=== PATIENT | female | born 1945 | race Caucasian/White ===

== ENCOUNTER 2016-05-22 14:44 | Inpatient (IN) | payer OTHER, MEDICARE ==
[~2016-05-22] VITALS: Ht 162.6 cm; Wt 77.1 kg
[~2016-05-22 14:44] MED LIST: ACETAMINOPHEN/H1 TAB PO; ADVAIR 500-501 EACH INH; ADVAIR DISKU 11 UNIT INH; ALBUTEROL0.09 MG/A1 INH; ALPRAZOLAM0.25 MG PO; DOCUSATE SODIU100 MG PO; LEVOXYL100 MCG PO; LIDODERM 5% PAT1 PAT TOP; LOVENOX 4040 MG/0.4 SC; NORVASC5 M1 PO; PLAQUENIL200 M1 PO; TYLENOL #31 TAB PO; ULTRACET 325 MG1 TAB PO; ULTRAM(MONOGRAP50 MG PO; VALTREX1 GM PO; XANAX0.5 MG
--- NOTE | 2016-05-22 14:52 | NUR ---
SLID ON THE ICE MONDAY INJURING LEFT LEG FROM HIP TO ANKLE. 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 STATES TODAY THE LEG STIFFENED UP AND SHE IS UNABLE TO BEAR WEIGHT ON IT
--- NOTE | 2016-05-22 15:12 | ED MVC/FALL/TRAUMA COMPLAINT ---
History of Present Illness General Chief Complaint: Lower Extremity Problems Stated Complaint: "I FELL MONDAY IN THE ICE" Source: patient, old records Exam Limitations: no limitations Vital Signs & Intake/Output Vital Signs & Intake/Output Vital Signs Date Time Temp Pulse Resp B/P Pulse O2 O2 Flow FiO2 Ox Delivery Rate 05/22 1848 97.1 64 18 148/72 98 Room Air 05/22 1642 97.8 66 20 158/74 98 Room Air 05/22 1452 97.9 61 20 155/79 96 Room Air Allergies Coded Allergies: diazepam (Mild, ITCHING 05/22/16) Sulfa (Sulfonamide Antibiotics) (ITCHING 05/22/16) oxycodone (GI SXS 05/22/16) Uncoded Allergies: DAIRY FOODS (GI DISTRESS 05/22/16) Reconcile Medications Amlodipine Besylate (Norvasc) 5 MG TABLET 1 TAB PO DAILY HEART (Reported) Fluticasone/Salmeterol (Advair 500-50 Diskus) 500 MCG-50 MCG/DOSE BLST.W.DEV 1 PUF INH BID COPD (Reported) Hydroxychlorquine (Plaquenil) 200 MG TABLET 1 TAB PO DAILY ARTHRITIS ( Reported) Levothyroxine Sodium (Levoxyl) 100 MCG TABLET 1 TAB PO DAILY AC THYROID ( Reported) Tramadol HCl 50 MG TABLET 1-2 TAB PO Q4-6 PRN PRN PAIN (Reported) Triage Note: SLID ON THE ICE MONDAY INJURING LEFT LEG FROM HIP TO ANKLE. 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 STATES TODAY THE LEG STIFFENED UP AND SHE IS UNABLE TO BEAR WEIGHT ON IT Triage Nurses Notes Reviewed? yes Onset: Abrupt Duration: day(s): (3), constant Timing: recent history Severity: moderate Severity Numbers: 7 Injuries/Fall Location: upper extremity, pelvis, lower extremity Method of Injury: fall Loss of Consciousness: no loss of consciousness Modifying Factors: Improves With: rest. Worsens With: movement, palpation. Associated Symptoms: denies HPI: 70-year-old female presents emergency room with her for evaluation. Patient states that 3 days ago she slipped and fell on the ice sustaining injury to her left hip left wrist and ankle. She states that she was taking ibuprofen and Soma for pain which was helping however today while she was out walking in the store she developed severe pain to her left hip and has been unable to ambulate or bear weight on the left leg secondary to pain. There is no new injury or trauma. She hit her head when she initially felt there was no loss of consciousness there is no neck or upper back pain. She just took a dose of ibuprofen and Soma prior to arrival. There is no abdominal pain leg swelling numbness tingling. She describes the pain as aching and sharp mild to moderate worse with ambulation better at rest. She is also complaining of left wrist and left ankle pain from the fall. She denies any left knee pain and right leg or upper arm pain otherwise. she is not on any anticoagulants (BJORN JACKSON) Past History Travel History Traveled to [place] past 21 day No Medical History Any Pertinent Medical History? see below for history Neurological: vertigo EENT: CATARACT SX BILAT Cardiovascular: htn Respiratory: obstructive sleep apnea, copd Musculoskeletal: ra Psychiatric: anxiety Endocrine: HYPOTHYROID Surgical History Surgical History: knee replacement Psychosocial History Who do you live with Significant Other What is your primary language Norwegian Tobacco Use: Never used ETOH Use: denies use Illicit Drug Use: denies illicit drug use Family History Hx Contributory? No (BJORN JACKSON) Review of Systems Review of Systems Constitutional: Reports: see HPI. All Other Systems: Reviewed and Negative Comments Review of systems: See HPI, All other systems negative. Constitutional, no chills no fever, no malaise HEENT: No visual changes no sore throat no congestion Cardiovascular: No chest pain , no palpitation Skin, no rashes, no change in skin Respiratory: No dyspnea no cough no sputum s GI: No nausea no vomiting, no diarrhea, no bloating/constipation : No dysuria No hematuria, no frequency, no discharge Muscle skeletal: joint pain, no joint swelling, no back pain, no neck pain, Neurologic: No numbness, no headache Psych: No stress ,. Heme/endocrine: No bruising no bleeding Immunology: No lymphadenopathy (BJORN JACKSON) Physical Exam Physical Exam General Appearance: well developed/nourished, no apparent distress, alert, awake Comments: Well-developed well-nourished person in no acute distress HEENT: Normal EENT exam; PERRL, EOMI, HEAD is atraumatic. moist mucous membranes. Neck: Supple, no midline or paracervical tenderness, normal range of motion Back: Nontender, no CVA tenderness. Full range of motion no midline or paracervical tenderness no ecchymosis or signs of trauma Cardiovascular: Regular rate and rhythms no murmurs rubs Respiratory: Chest nontender.There were no bony deformities, no asymmetry. No respiratory distress. Patient speaking in full complete sentences. Breath sounds clear to auscultation bilaterally: NO W/R/R Abdomen: Soft, nontender nondistended, no appreciable organomegaly. Normal bowel sounds. No rebound/guarding, Shoulder: Atraumatic/Stable. FROM . Elbow: Atraumatic/stable. FROM. No laxity Upper arm/Forearm: Atraumatic. Nontender. 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 Skin intact. The ecchymosis over the dorsal left wrist nontender no swelling no obvious deformity FROM Pulses: Normal/equal radial pulses bilaterally. Brisk cap refill Hip/Pelvis: Mild tenderness to palpation over the left lateral hip, there is no ecchymosis or signs of trauma, Stable. FROM. No pain with pelvic compression Knee: Atraumatic/stable. FROM. No joint swelling, no effusion. No laxity. Negative bianca/anterior drawer test. No pain with ROM Leg: Atraumatic. Nontender. No edema, 5 out of 5 strength in the lower extremity, normal dorsiflexion of great toe bilaterally, gross sensation is intact Ankle/Foot: Atraumatic/stable. Skin intact. FROM. No swelling, no effusion. No laxity on exam Pulses: Normal/equal DP/PT pulses bilaterally. Brisk cap refill Neuro: Alert oriented x3, motor sensory normal There were no obvious focal neurologic abnormalities. Skin: No appreciable rash on exposed skin, skin is warm and dry. Psych: Mood and affect is normal, memory and judgment is normal. Core Measures ACS in differential dx? No Severe Sepsis Present: No Septic Shock Present: No (KALIN GOEL,BJORN) Progress Differential Diagnosis: abd injury, C/T/L spine injury, ext injury, pelvis injury, pnemothorax, spinal cord injury Plan of Care: Orders Procedure Date/time Status Regular Diet 05/23 B Active PT Evaluate & Treat 05/23 0700 Active Saline Lock 05/22 1819 Active CBC WITHOUT DIFFERENTIAL 05/22 1819 Complete BASIC METABOLIC PANEL 05/22 1819 Complete Laboratory Tests 05/22/16 182: Anion Gap 11, Estimated GFR > 60, BUN/Creatinine Ratio 25.6 H, Glucose 94, Calcium 9.3, CBC w Diff NO MAN DIFF REQ, RBC 4.26, MCV 91.5, MCH 30.6, RDW 13.9, MPV 7.7, Gran % 74.7, Lymphocytes % 16.2 L, Monocytes % 7.4, Eosinophils % 1.2, Basophils % 0.5, Absolute Granulocytes 7.6 H, Absolute Lymphocytes 1.6, Absolute Monocytes 0.7 H, Absolute Eosinophils 0.1, Absolute Basophils 0, PUBS MCHC 33.5 X-rays ordered patient TORADOL 60 mg IM'' Discussed with patient x-ray results still having worsening pain unable secondary to the bathroom, CAT scan ordered D/W PT AND HER HER CT RESULTS, PT NOT AMBUATLROY AT BASELINE, EVEN WITH WALKER PT CANNOT PLACE WEIGHT ON LEFT LEG Case discussed with Labs ordered old records reviewed, D/W DR CHAPIN WILL ADMIT (KALIN GOEL,BJORN) Diagnostic Imaging: Viewed by Me: Radiology Read, CT Scan. Discussed w/RAD: Radiology Read, CT Scan. Radiology Impression: PATIENT: ANABEL BELTRÁN PRESENT AGE: 70 PATIENT ACCOUNT NO: [id number] : 43 LOCATION: [facility] ORDERING PHYSICIAN: BJORN GOEL SERVICE DATE: 05/22/16 EXAM TYPE: CAT - CT PELVIS WO IV CONTRAST EXAMINATION: CT PELVIS WITHOUT CONTRAST CLINICAL INFORMATION: Fall. Left hip pain. COMPARISON: Hip radiography earlier today. TECHNIQUE: Helical scanning was performed with submillimeter collimation through the pelvis. Sagittal and coronal multiplanar 2-D reconstructions were obtained. DLP: 1111 mGy-cm. FINDINGS: No fracture or dislocation. The pelvic rings are maintained. Bilateral femoral heads are situated within the acetabula. Chronic sclerotic focus within the left femoral head likely represents a bone island. Decreased bone mineral density. Degenerative changes at the sacroiliac joint and pubic symphysis. Lower lumbar degenerative changes. Grade 1 anterolisthesis of L4 on L5. No intramuscular hematoma. No evidence of asymmetric/significant hip joint effusion. Chronic left adnexal cyst is not significantly changed compared to exam 06/13/2014. No acute intrapelvic pathology. No pelvic adenopathy. Scattered atherosclerotic calcification. IMPRESSION: No acute fracture demonstrated. DICTATED BY: JUANITO COONEY MD DATE/TIME DICTATED:05/22/161800 SUPERVISOR MICROBIOLOGY TECHNOLOGISTS:BONITA DATE/TIME TRANSCRIBED:05/22/161800 CONFIDENTIAL, DO NOT COPY WITHOUT APPROPRIATE AUTHORIZATION. <Electronically signed in Other Vendor System> SIGNED BY: JUANITO COONEY MD 05/22/161810, PATIENT: ANABEL BELTRÁN PRESENT AGE: 70 PATIENT ACCOUNT NO: [id number] : 43 LOCATION: [facility] ORDERING PHYSICIAN: BJORN GOEL SERVICE DATE : 05/22/16 EXAM TYPE: RAD - XRY-ANKLE 3 OR MORE VIEWS L; XRY-HIP 2-3 VIEWS, LEFT; XRY-WRIST COMPLETE-LEFT EXAMINATION: XR LEFT HIP AND PELVIS XR LEFT WRIST XR LEFT ANKLE CLINICAL INFORMATION: Pain. Fall. COMPARISON: CT abdomen and pelvis 06/13/2014. TECHNIQUE: 4 views of the left wrist were obtained. 2 views of the left hip and one view of the pelvis was obtained. 3 views of the left ankle were obtained. FINDINGS: LEFT WRIST: No acute fracture or dislocation. Mildly decreased bone mineral density. Chronic ossific fragment anterior to the distal ulna. Additional chronic appearing mineralized fragment within the soft tissues along the volar aspect of the hand, superficial to the base of the third metacarpal. Prominent degenerative changes at the first CMC and to a lesser degree the triscaphe articulation. No widening of the distal radial ulnar joint. No disruption of the carpal arcs. PELVIS/LEFT HIP: No fracture or dislocation. The pelvic rings are maintained. No evidence of diastases of the pubic symphysis or sacroiliac joints. Chronic sclerosis about the pubic symphysis. Bilateral femoral heads are situated within the acetabula. No evidence of trabecular discontinuity of the left femoral neck. Sclerotic focus within the left femoral neck likely represents a bone island. Lower lumbar degenerative changes. LEFT ANKLE: No fracture or dislocation. The ankle mortise is congruent. No widening of the tibiofibular syndesmosis. Plantar calcaneal spurring. IMPRESSION: 1. No acute osseous abnormality of the left wrist, pelvis/left hip, or left ankle demonstrated. 2. Decreased bone mineral density. Given this, if there is high clinical suspicion for radiographically occult fracture (i.e. continued pain), further evaluation with cross-sectional imaging could be obtained. 3. Chronic changes as above. DICTATED BY: JUANITO COONEY MD DATE/TIME DICTATED:05/22/161611 SUPERVISOR MI[employer]BIOLOG[employer] TECHNOLOGISTS:BONITA DATE/TIME TRANSCRIBED:05/22/161611 CONFIDENTIAL, DO NOT COPY WITHOUT APPROPRIATE AUTHORIZATION. <Electronically signed in Other Vendor System> SIGNED BY: JUANITO COONEY MD 05/22/16 4643 (BJORN JACKSON) Departure Departure Time of Disposition: 1938 Disposition: STILL A PATIENT Condition: Stable Clinical Impression Primary Impression: Unsteady gait Secondary Impressions: Hip pain, Intractable pain Referrals: JOSE ANGEL SORIANO,CLOTILDE Armando (PCP/Family) Departure Forms: Customer Survey General Discharge Information Admission Note Spoke With: DARI SORIANO,RANDYBrian Documentation of Exam: Documentation of any treatments & extenuating circumstances including Concerns Regarding Discharge (functional status, medication knowledge or non-compliance, living conditions, etc.) that warrant an admission rather than observation: Patient will require PT consult IV pain medications and labs she is unsteady gait she is not at her baseline she is a fall risk premature discharge be medically harmful (BJORN JACKSON) PA/INDUSTRIAL TECHNOLOGIST Co-Sign Statement Statement: ED Attending supervision documentation- [X] I saw and evaluated the patient. I have also reviewed all the pertinent lab results and diagnostic results. I agree with the findings and the plan of care as documented in the PA's/INDUSTRIAL TECHNOLOGIST's documentation. [X] I have reviewed the ED Record and agree with the PA's/INDUSTRIAL TECHNOLOGIST's documentation. [] Additions or exceptions (if any) to the PAs/INDUSTRIAL TECHNOLOGIST's note and plan are summarized below: [] (LIV SORIANO,SABA)
[2016-05-22] MEDS ORDERED: TRAMADOL HCL50 M1 PO (15:29)
--- NOTE | 2016-05-22 15:58 | NUR ---
PT TO AND FROM XRAY. PAIN TO PALPATION OF LEFT LATERAL THIGH. ALSO C/O LEFT HAND PAIN
--- NOTE | 2016-05-22 16:34 | RADIOLOGY REPORT ---
EXAMINATION: XR LEFT HIP AND PELVIS XR LEFT WRIST XR LEFT ANKLE CLINICAL INFORMATION: Pain. Fall. COMPARISON: CT abdomen and pelvis 06/13/2014. TECHNIQUE: 4 views of the left wrist were obtained. 2 views of the left hip and one view of the pelvis was obtained. 3 views of the left ankle were obtained. FINDINGS: LEFT WRIST: No acute fracture or dislocation. Mildly decreased bone mineral density. Chronic ossific fragment anterior to the distal ulna. Additional chronic appearing mineralized fragment within the soft tissues along the volar aspect of the hand, superficial to the base of the third metacarpal. Prominent degenerative changes at the first CMC and to a lesser degree the triscaphe articulation. No widening of the distal radial ulnar joint. No disruption of the carpal arcs. PELVIS/LEFT HIP: No fracture or dislocation. The pelvic rings are maintained. No evidence of diastases of the pubic symphysis or sacroiliac joints. Chronic sclerosis about the pubic symphysis. Bilateral femoral heads are situated within the acetabula. No evidence of trabecular discontinuity of the left femoral neck. Sclerotic focus within the left femoral neck likely represents a bone island. Lower lumbar degenerative changes. LEFT ANKLE: No fracture or dislocation. The ankle mortise is congruent. No widening of the tibiofibular syndesmosis. Plantar calcaneal spurring. IMPRESSION: 1. No acute osseous abnormality of the left wrist, pelvis/left hip, or left ankle demonstrated. 2. Decreased bone mineral density. Given this, if there is high clinical suspicion for radiographically occult fracture (i.e. continued pain), further evaluation with cross-sectional imaging could be obtained. 3. Chronic changes as above.
--- NOTE | 2016-05-22 17:00 | NUR ---
PA AT BEDSIDE AND DISCUSSED PLAN OF CARE. PT AWARE THAT SHE IS GOING TO HAVE CT SCAN, PT TO BE MEDICATED FOR PAIN PRIOR TO TEST
--- NOTE | 2016-05-22 17:08 | NUR ---
PT UNABLE TO STAND ON HER OWN , NEEDED MAXIMUM ASSIST TO STAND AND PIVOT. PT STATES THAT SHE FELL MONDAY AND THE PAIN HAS JUST BEEN INCREASING DAILY , AND NOW SHE IS AT THE POINT THAT SHE CAN'T MOVE. PHARMACY CALLED FOR MED
--- NOTE | 2016-05-22 17:58 | NUR ---
PT MEDICATED FOR PAIN AND ASSISTED TO BATHROOM VIA WHEEL CHAIR. PT ABLE TO STAND PIVIT BUT CAN NOT BARE WEIGHT ON HER L LEG
--- NOTE | 2016-05-22 18:11 | CT SCAN REPORT ---
EXAMINATION: CT PELVIS WITHOUT CONTRAST CLINICAL INFORMATION: Fall. Left hip pain. COMPARISON: Hip radiography earlier today. TECHNIQUE: Helical scanning was performed with submillimeter collimation through the pelvis. Sagittal and coronal multiplanar 2-D reconstructions were obtained. DLP: 1111 mGy-cm. FINDINGS: No fracture or dislocation. The pelvic rings are maintained. Bilateral femoral heads are situated within the acetabula. Chronic sclerotic focus within the left femoral head likely represents a bone island. Decreased bone mineral density. Degenerative changes at the sacroiliac joint and pubic symphysis. Lower lumbar degenerative changes. Grade 1 anterolisthesis of L4 on L5. No intramuscular hematoma. No evidence of asymmetric/significant hip joint effusion. Chronic left adnexal cyst is not significantly changed compared to exam 06/13/2014. No acute intrapelvic pathology. No pelvic adenopathy. Scattered atherosclerotic calcification. IMPRESSION: No acute fracture demonstrated.
--- NOTE | 2016-05-22 18:18 | NUR ---
PT UNABLE TO AMBULATE WITH WALKER AND ASSIST OF STAFF, ABLE TO STAND BUT UNABLE TO PUT ANY PRESSURE ON L LEG
[2016-05-22 19:09] LABS: ABSOLUTE BASOPHIL COUNT 0 /CUMM (0.0-0.2); ABSOLUTE EOSINOPHIL COUNT 0.1 /CUMM (0.0-0.7); ABSOLUTE GRANULOCYTE CT 7.6 /CUMM (1.4-6.5); ABSOLUTE LYMPH COUNT 1.6 /CUMM (1.2-3.4); ABSOLUTE MONOCYTE COUNT 0.7 /CUMM (0.10-0.60); BASOPHIL % 0.5 % (0.0-2.0); EOSINOPHIL % 1.2 % (0-5); GRANULOCYTE % 74.7 % (42.2-75.2); MEAN CORPUSCULAR HGB 30.6 PG (27.0-31.0); MEAN CORPUSCULAR HGB CONC 33.5 G/DL (33.0-37.0); MEAN CORPUSCULAR VOLUME 91.5 FL (81.0-99.0); MEAN PLATELET VOLUME 7.7 FL (7.4-10.4); PLATELET COUNT 293 /CUMM (130-400); RBC DISTRIBUTION WIDTH 13.9 % (11.5-14.5); RED BLOOD CELL CT 4.26 /CUMM (4.20-5.40); WHITE BLOOD CELL COUNT 10.1 /CUMM (4.8-10.8)
--- NOTE | 2016-05-22 19:21 | NUR ---
ASSUMED CARE OF PT PER CECILLE ZARATE. PT RESTING IN RM WITH RR. WILL CONTINUE TO MONITOR.
--- NOTE | 2016-05-22 20:31 | NUR ---
CECILLE LEVIN HELPED PT TO BATHROOM IN A WHEELCHAIR.
--- NOTE | 2016-05-22 20:36 | NUR ---
THIS ASSISTED PT BACK TO RM IN WHEELCHAIR, PT ASKED TO STAY IN WHEELCHAIR BECAUSE THE BED IS STARTING TO GET UNCOMFORTABLE. THIS RN LOCKED WHEELCHAIR.
--- NOTE | 2016-05-22 20:42 | NUR ---
PT HAS BED ASSIGNMENT 220-2
--- NOTE | 2016-05-22 21:05 | NUR ---
PT MEDICATED WITH 0.25MG XANEX PER EMAR FOR ANXIETY. REPORT GIVEN TO CECILLE PARADA. TRANSPORT CALLED.
--- NOTE | 2016-05-22 21:41 | NUR ---
LATE NURSING ENTRY: PT ARRIVED TO FLOOR AT 2119 FROM ER VIA WHEELCHAIR. PT A/V/OX3. ON RA. LUNGS CLEAR. DENIES RESP DISTRESS. HX OF COPD AND LORENZO, DOES NOT USE CIPAP OR BIPAP. PT STATES SHE DOES NOT CURRENTLY HAVE ANY PAIN IN THE LEFT SIDE OF HER BODY DUE TO MEDICATIONS ADMINISTERED IN ED. PT EMOTIONAL AT THOUGHT THAT SHE MAY BE "CRIPPLED". EMOTIONAL SUPPORT PROVIDED. +PULSES, +CMS. DENIES NUMBNESS OR TINGLING TO L LEG. #22 RFA FLUSHING EASILY. SKIN INTACT. BED ALARM IN PLACE. CALL [facility] WITHIN REACH. ORIENTED TO STAFF, CALL [facility], AND SURROUNDINGS. WILL CONTINUE TO MONITOR.
[2016-05-22] MEDS ORDERED: XANAX0.25 M1 PO (22:05)
--- NOTE | 2016-05-22 22:06 | Admission Certification ---
Admission Certification Certification Statement - As attending physician, I certify that at the time of - admission, based on clinical presentation, severity of - symptoms, need for further diagnostic testing and - therapeutic interventions, and risk of adverse outcomes - without in-hospital treatment, in my clinical assessment, - this patient requires an acute hospital stay for a minimum - of two nights or longer. I have also considered psychsocial - factors such as support system, advanced age, financial - issues, cognitive issues, and failed out-patient treatments, - past re-admission history, safety of patient, and lack of - compliance as applicable. Specific rationale supporting this admission is: Intractable left hip pain s/p mechanical fall, needs PT eval, pain management and placement.
[2016-05-22] MEDS ORDERED: SOMA250 M1 PO (22:08)
[2016-05-22 22:14] VITALS: BP 152/70
--- NOTE | 2016-05-22 23:16 | History & Physical ---
CONI NIETO 05/22/16 6050: General Information and HPI MD Statement: I have seen and personally examined ANABEL BELTRÁN and documented this H&P. The patient is a 70 year old F who presented with a patient stated chief complaint of []. Source of Information: patient Exam Limitations: no limitations History of Present Illness: She 70-year-old woman with past medical history of COPD, obstructive sleep apnea noncompliant with CPAP, anxiety, hypothyroidism, hypertension, factor VIII deficiency, rheumatoid arthritis presented to ER with complaint of left leg pain. According to patient she slipped on ice and fell down on her left side 5 days ago. Next day she started feeling pain of her left leg. He she took aspirin, ibuprofen and Soma at home but her pain got worse to the point that she was not able to walk and bear weight on it. She denies hitting her head or loss of consciousness. She also denies feeling dizzy or lightheaded, chest pain or discomfort, palpitations before fall. She also denies any weakness or numbness of her left leg. In ER she got Soma one 75 mg by mouth 1, Toradol 30 mg IM 1 and a TRAM 50 mg by mouth 1. Currently her pain is better and she is able to be elevated on her left leg. She denies any nausea, vomiting, abdominal pain, diarrhea, constipation, any change in urinary or bowel habits, chest pain or discomfort, breathing difficulty. She lives with her boyfriend. Former smoker. Quit smoking 15 years ago used to smoke 1 pack per day. Denies use of alcohol or illicit drugs. She has 1 son and 2 daughters. She babysits her grand kids. Very independent for activities of daily living. Allergies/Medications Allergies: Coded Allergies: diazepam (Mild, ITCHING 05/22/16) Sulfa (Sulfonamide Antibiotics) (ITCHING 05/22/16) oxycodone (GI SXS 05/22/16) Uncoded Allergies: DAIRY FOODS (GI DISTRESS 05/22/16) Home Med list Alprazolam (Xanax) 0.25 MG TABLET 1 TAB PO DAILY NEEDED ANXIETY (Reported) Amlodipine Besylate (Norvasc) 5 MG TABLET 1 TAB PO DAILY HEART (Reported) Carisoprodol (SOMA) 250 MG TABLET 0.5 TAB PO DAILY PRN MUSCLE RELAXANT ( Reported) Fluticasone/Salmeterol (Advair 500-50 Diskus) 500 MCG-50 MCG/DOSE BLST.W.DEV 1 PUF INH BID COPD (Reported) Levothyroxine Sodium (Levoxyl) 100 MCG TABLET 1 TAB PO DAILY AC THYROID ( Reported) Tramadol HCl 50 MG TABLET 1 TAB PO BID PAIN (Reported) Past History Travel History Traveled to [place] past 21 day No Medical History Blood Transfusion Hx: No Neurological: vertigo EENT: CATARACT SX BILAT Cardiovascular: htn Respiratory: obstructive sleep apnea, copd Gastrointestinal: NONE Hepatic: NONE Renal: NONE Musculoskeletal: ra Psychiatric: anxiety Endocrine: HYPOTHYROID Blood Disorders: NONE Cancer(s): NONE BONSAI TENDER/Reproductive: NONE History of CDIFF: No Isolation History: Standard Surgical History Surgical History: appendectomy, knee replacement (left), bilateral tubal ligation Past Family/Social History Family History Relations & Conditions if any FATHER (Colon cancer). MOTHER (Diabetes mellitus). niece (MS). Psychosocial History Where do you live? Home Smoking Status: Former Smoker ETOH Use: denies use Illicit Drug Use: denies illicit drug use Functional Ability ADLs Independent: dressing, eating, toileting, bathing. Review of Systems Review of Systems Constitutional: Reports: see HPI. Exam & Diagnostic Data Last 24 Hrs of Vital Signs/I&O Vital Signs Date Time Temp Pulse Resp B/P Pulse O2 O2 Flow FiO2 Ox Delivery Rate 05/22 2214 97.6 62 20 152/70 96 05/22 2109 97.9 63 16 156/72 97 Room Air 05/22 1848 97.1 64 18 148/72 98 Room Air 05/22 1642 97.8 66 20 158/74 98 Room Air 05/22 1452 97.9 61 20 155/79 96 Room Air Intake & Output 05/22 1600 05/22 0800 05/22 0000 Intake Total 0 Output Total Balance 0 Intake, Oral 0 Patient 170 lb Weight Physical Exam General Appearance Alert, Oriented X3, Cooperative, No Acute Distress Skin No Rashes, no bruises HEENT Mucous Membr. moist/pink Neck Supple Cardiovascular Regular Rate, No Murmurs Lungs Clear to Auscultation Abdomen Normal Bowel Sounds, Soft, No Tenderness Neurological Normal Speech, Strength at 5/5 X4 Ext, Sensation Intact, Cranial Nerves 3-12 NL Extremities No Edema, Normal Pulses, No Tenderness/Swelling, restricted in range of motion of left hip because of pain. , vertical scar on left knee Last 24 Hrs of Labs/John: Laboratory Tests 05/22/16 1829: Anion Gap 11, Estimated GFR > 60, BUN/Creatinine Ratio 25.6 H, Glucose 94, Calcium 9.3, CBC w Diff NO MAN DIFF REQ, RBC 4.26, MCV 91.5, MCH 30.6, RDW 13.9, MPV 7.7, Gran % 74.7, Lymphocytes % 16.2 L, Monocytes % 7.4, Eosinophils % 1.2, Basophils % 0.5, Absolute Granulocytes 7.6 H, Absolute Lymphocytes 1.6, Absolute Monocytes 0.7 H, Absolute Eosinophils 0.1, Absolute Basophils 0, PUBS MCHC 33.5 Diagnostic Data Other Results Left hip, ankle and wrist x-ray was done in ER and did not show any fracture. Decreased bone mineral density. CT pelvis without contrast of left hip did not show any acute fracture or intramuscular hematoma. Assessment/Plan Assessment: She 70-year-old woman with past medical history of COPD, obstructive sleep apnea noncompliant with CPAP, anxiety, hypothyroidism, hypertension, factor VIII deficiency, rheumatoid arthritis presented to ER with complaint of left leg pain. She is going to be admitted on general medicine floor for following reasons. Problem list 1. Mechanical fall resulting in intractable left hip/thigh pain. Imaging studies did not show evidence of fracture or intramuscular hematoma. Patient was not able to do her activities of daily living without assistance. 2. History of COPD 3. History of hypertension 4. History of hypothyroidism Plan We will monitor vitals every shift. Pain management with tramadol 50 mg twice a day that is her home dose, soma 175 mg 3 times a day and Toradol 30 mg IV every 8 hours for severe breakthrough pain. We will continue all her home medications. Physical therapy evaluation and treatment. Patient might need STR. Subcutaneous Lovenox for DVT prophylaxis. Regular diet. Full code As Ranked By This Provider Problem List: 1. Hip pain Core Measures/Miscellaneous Acute Coronary Syndrome ACS Diagnosis: No Cerebrovascular Accident CVA/TIA Diagnosis: No Congestive Heart Failure CHF Diagnosis: No Venous Thromboembolism VTE Risk Factors: Acute medical illness, Age > 40 VTE Prophylaxis Ordered Inpt: Pharm- Lovenox No Mech VTE prophylaxis d/t: No contraindications No VTE Pharm Prophylaxis d/t: No contraindications VTE Diagnosis: No VTE Type: NONE VTE Confirmed by (Test): NONE Severe Sepsis Severe Sepsis Present: No Septic Shock Septic Shock Present: No Miscellaneous Documentation Attending Case Discussed With: KARLA CHAPIN MD Primary Care Physician: CLOTILDE WALTER MD Patient sees these Specialists Supervisor [employer] Senior Associate Level of Patient Care: General Medicine LILIAM CHAPIN MD 05/23/16 0118: Attending MD Review Statement Attending Statement Attending MD Statement: examined this patient, discuss w/resident/PA/ENGINEERING SCIENTIST, agreed w/resident/PA/ENGINEERING SCIENTIST Attending Assessment/Plan: 70 yo F with h/o COPD, anxiety, HTN, hypothyroidism, LORENZO not using CPAP, RA on tramadol (prev on plaquenil), factor VIII deficiency, who is here s/p mechanical fall on ice 3 days ago with impact and intractable pain to her left hip/ buttock / wrist without any head trauma or LOC. She tried aspirin and soma (that she had from an old prescription) with minimal relief. Today, she was unable to walk or bear weight on her left leg due to excruciating hip pain hence she came to ER. VSS. Exam: Back no midline or paraspinal tenderness, tenderness noted to left lateral hip without obvious ecchymosis or swelling. SLR negative. Patient was able to stand on both her feet, take one step forward with her left foot, but as soon as she offloaded her right leg she was in pain and unable to bear weight on her left hip. No knee pain. Peripheral pulses well felt. Left wrist dorsum bony abnormality without obvious tissue swelling or ecchymosis. Labs unremarkable except for BUN 23. Imaging does not reveal any fractures. 1. Intractable left hip pain s/p mechanical fall. GM admit, fall precautions, check TSH, B12 and vit D levels. Pain management with Tramadol and ketorolac. Add Soma TID. If pain persists, consider Ortho eval. PT eval and possible STR placement. 2. HTN. Ct. Amlodipine. 3. COPD. Ct. Advair. DVT ppx Lovenox. Full code.
[2016-05-23 06:17] VITALS: BP 132/76
--- NOTE | 2016-05-23 07:38 | PN- Housestaff ---
See Addendum GERALDO LEONARDO MDDOMENICOMAKENZIE 05/23/16 0737: Subjective Follow-up For: Lt. hip pain s/p [facility] fall Complaints: Lt. hip pain Subjective: When she is not moving, she doesn't have pain. However, it is very painful to walk. PT didn't see her yet. Pt is frustrated with inability to walk. Review of Systems Constitutional: Denies: chills, fever, weakness. EENTM: Reports: no symptoms. Cardiovascular: Reports: no symptoms. Respiratory: Reports: no symptoms. Gastrointestinal: Reports: no symptoms. Genitourinary: Reports: no symptoms. Musculoskeletal: Reports: joint pain, muscle pain. Skin: Reports: no symptoms. Neurological/Psychological: Reports: anxiety. Hematologic/Endocrine: Reports: no symptoms. Objective Last 24 Hrs of Vital Signs/I&O Vital Signs Date Time Temp Pulse Resp B/P Pulse O2 O2 Flow FiO2 Ox Delivery Rate 05/23 0617 98.7 58 20 132/76 97 Room Air 05/22 2214 97.6 62 20 152/70 96 05/22 2109 97.9 63 16 156/72 97 Room Air 05/22 1848 97.1 64 18 148/72 98 Room Air 05/22 1642 97.8 66 20 158/74 98 Room Air 05/22 1452 97.9 61 20 155/79 96 Room Air Intake & Output 05/23 1600 05/23 0800 05/23 0000 Intake Total 360 420 Output Total 300 Balance 60 420 Intake, Oral 360 420 Output, Urine 300 Patient 170 lb Weight Physical Exam General Appearance: Alert, Oriented X3, Cooperative, No Acute Distress Skin: No Rashes, No Breakdown, No Significant Lesion HEENT: Atraumatic, PERRLA, EOMI, Mucous Membr. moist/pink Neck: Supple, No JVD, No LAD Lymphatic: Cervical nl Cardiovascular: Regular Rate, Normal S1, Normal S2, No Murmurs Lungs: Clear to Auscultation, Normal Air Movement Abdomen: Normal Bowel Sounds, Soft, No Tenderness Neurological: Normal Speech, Strength at 5/5 X4 Ext, Normal Tone, Sensation Intact, Cranial Nerves 3-12 NL Extremities: No Edema, Normal Pulses, Lt. lat. hip tenderness Vascular: Normal Pulses, Pulses Symmetrical Current Medications: Current Medications Sig/[place] Start time Last Medication Dose Route Stop Time Status Admin Alprazolam 0.25 MG DAILY NEEDED 05/22 221 AC PO 05/29 221 Alprazolam 0.25 MG ONCE ONE 05/22 2099 DC 05/22 PO 05/22 2100 210 Alprazolam 0 .STK-MED ONE 05/22 2058 DC PO Amlodipine Besylate 5 MG DAILY 05/23 1000 AC PO Budesonide/ 1 PUF BID 05/22 221 AC 05/22 Formoterol Fumarate INH 9 Budesonide/ 2 PUF ONCE ONE 05/22 2044 DC Formoterol Fumarate INH 05/22 204 Carisoprodol 175 MG TID 05/23 1000 AC PO Carisoprodol 175 MG ONCE ONE 05/22 1715 DC 05/22 PO 05/22 1716 1746 Enoxaparin Sodium 40 MG DAILY 05/23 1000 AC SC Ketorolac 30 MG Q8P PRN 05/22 2215 AC 05/23 Tromethamine IV 0258 Ketorolac 0 .STK-MED ONE 05/22 1742 DC Tromethamine IM Ketorolac 30 MG ONCE ONE 05/22 1715 DC 05/22 Tromethamine IM 05/22 1716 1746 Levothyroxine Sodium 0.1 MG DAILY AC 05/23 0700 AC 05/23 PO 0524 Tramadol HCl 50 MG BID 05/23 1000 AC PO Tramadol HCl 0 .STK-MED ONE 05/22 1906 DC PO Tramadol HCl 50 MG ONCE ONE 05/22 1900 DC 05/22 PO 05/22 1901 1908 Last 24 Hrs of Lab/John Results Last 24 Hrs of Labs/Mics: Laboratory Tests 05/23/16 0720: Vitamin B12 Pending 05/23/16 0720: 25-OH Vitamin D Total Pending, TSH Pending 05/22/16 1829: Anion Gap 11, Estimated GFR > 60, BUN/Creatinine Ratio 25.6 H, Glucose 94, Calcium 9.3, CBC w Diff NO MAN DIFF REQ, RBC 4.26, MCV 91.5, MCH 30.6, RDW 13.9, MPV 7.7, Gran % 74.7, Lymphocytes % 16.2 L, Monocytes % 7.4, Eosinophils % 1.2, Basophils % 0.5, Absolute Granulocytes 7.6 H, Absolute Lymphocytes 1.6, Absolute Monocytes 0.7 H, Absolute Eosinophils 0.1, Absolute Basophils 0, PUBS MCHC 33.5 Lines/Diet/Fluids Lines: peripheral lines Assessment/Plan Assessment: 70 yo F with h/o COPD, anxiety, HTN, hypothyroidism, LORENZO not using CPAP, RA on tramadol (prev on plaquenil), factor VIII deficiency, who is here s/p mechanical fall on ice 3 days ago with impact and intractable pain to her left hip/ buttock / wrist without any head trauma or LOC. She tried aspirin and soma (that she had from an old prescription) with minimal relief. Today, she was unable to walk or bear weight on her left leg due to excruciating hip pain hence she came to ER. 1. Intractable left hip pain s/p mechanical fall: Imaging does not reveal any fractures. fall precautions, check TSH, B12 and vit D levels. Pain management with Tramadol, celebrex, Soma TID. Will check Lt. hip & femur MRI to evaluate fracture. PT eval and possible STR placement. 2. HTN: c/w Amlodipine. 3. COPD: c/w TRC/Advair. 4. Anxiety: c/w 0.25mg alprazolam. 5. hypothyroidism: c/w levothyroxine. 6. Vit D deficiency: Start vit D supplement 1000 IU daily. DVT ppx Lovenox. Full code. Problem List: 1. Intractable pain 2. Hip pain 3. Unsteady gait Pain Ratin (while on rest) Pain Location: Lt. hip Pain Goal: Pain 4 or less Pain Plan: Celebrex, tramadol, soma Tomorrow's Labs & Rationales: NA DVT/Prophylaxis: pharmacological Discharge Plan Discharge Disposition: STR/NH Stable for Discharge? No SAMARIA HICKS MD 05/23/16 1349: Attending MD Review Statement Attending Statement Attending MD Statement: examined this patient, discuss w/resident/PA/PRIMARY HEALTH CARE NURSE, agreed w/resident/PA/PRIMARY HEALTH CARE NURSE, reviewed EMR data (avail), discussed with nursing, amended to note Attending Assessment/Plan: The patient was seen and discussed with house staff. Agree with the plan of care as outlined. Left groin/hip pain- will obtain MRI.
[2016-05-23 13:47] VITALS: BP 122/70
--- NOTE | 2016-05-23 14:48 | MRI REPORT ---
EXAMINATION: MR HIP WITHOUT CONTRAST, LEFT MR FEMUR WITHOUT CONTRAST, LEFT CLINICAL INFORMATION: Rule out left hip fracture. Intractable pain. Inability to walk. COMPARISON: CT 05/22/2016, x-ray 05/22/2016. TECHNIQUE: MRI in a high-field magnet without contrast. FINDINGS: Abnormal study. There is abnormal edema, with linear configuration and signal changes on the T1-weighted sequences in the proximal left femur. Findings are compatible with a fracture. The fracture plane is sagittally oriented on the long axis images. The fracture extends superiorly from the region of the greater trochanter, extending inferiorly within the intertrochanteric region to the subtrochanteric region. The fracture plane extends adjacent to but does not clearly extend through the lesser trochanteric region. The findings correlate with a near-complete, but not definitely complete, undisplaced fracture. There is edema in the adjacent soft tissues. There is normal articulation at the left hip joint. Small amount of joint fluid, within physiological limits. No evidence of fracture in the right femur. Left adnexal cyst, partially imaged measuring 3 x 2.4 cm. There is arthroplasty in the left knee, with associated artifact. There is edema associated with the left gluteus minimus greater than the gluteus medius tendon from tendinosis/reactive changes. Mild left common hamstring tendinosis. Iliopsoas tendon is grossly intact. IMPRESSION: 1. Abnormal study, with findings compatible with an undisplaced fracture of the proximal left femur. The fracture appears near complete, but not definitely complete, extending from the greater trochanteric region through the intertrochanteric region to the subtrochanteric region. Associated abnormal marrow edema. 2. Reactive edema versus tendinosis of the left gluteus minimus and medius tendons. 3. Mild left common hamstring tendinosis. 4. Left adnexal cyst measuring 3 x 2.4 cm. Recommend correlation with ultrasound.
--- NOTE | 2016-05-23 18:14 | Cons- Orthopedic ---
General Information and HPI Consulting Request Date of Consult: 05/23/16 Requested By: SAMARIA Cowart MD Reason for Consult: PAIN LEFT FEMUR History of Present Illness: PATIENT IS A 70 Y/O HAD A FALL 5 DAYS AGO UNABLE TO NOW BEAR WEIGHT THROUGH LEFT FEMUR. HAD XRAYS WHICH WERE NEGATIVE TAHN HADT ct SCAN WHICH DID NOT DISCLOSE THE FRACTURE THANN HAD AN mri WHICH DISCLOSED AN INTERTROCHANTERIC FRACTURE. HAD A LONG DISCUSSION WITH PATIENT ABOUT im NAILING SHE AGREES TO PROCEED. Allergies/Medications Allergies: Coded Allergies: diazepam (Mild, ITCHING 05/22/16) Sulfa (Sulfonamide Antibiotics) (ITCHING 05/22/16) oxycodone (GI SXS 05/22/16) Uncoded Allergies: DAIRY FOODS (GI DISTRESS 05/22/16) Home Med List: Alprazolam (Xanax) 0.25 MG TABLET 1 TAB PO DAILY NEEDED ANXIETY (Reported) Amlodipine Besylate (Norvasc) 5 MG TABLET 1 TAB PO DAILY HEART (Reported) Carisoprodol (SOMA) 250 MG TABLET 0.5 TAB PO DAILY PRN MUSCLE RELAXANT ( Reported) Fluticasone/Salmeterol (Advair 500-50 Diskus) 500 MCG-50 MCG/DOSE BLST.W.DEV 1 PUF INH BID COPD (Reported) Levothyroxine Sodium (Levoxyl) 100 MCG TABLET 1 TAB PO DAILY AC THYROID ( Reported) Tramadol HCl 50 MG TABLET 1 TAB PO BID PAIN (Reported) Past History Medical History Blood Transfusion Hx: No Neurological: vertigo EENT: CATARACT SX BILAT Cardiovascular: htn Respiratory: obstructive sleep apnea, copd Gastrointestinal: NONE Hepatic: NONE Renal: NONE Musculoskeletal: ra Psychiatric: anxiety Endocrine: HYPOTHYROID Blood Disorders: NONE Cancer(s): NONE SUPERVISOR WOUND/Reproductive: NONE Surgical History Pertinent Surgical History: appendectomy, knee replacement (left), bilateral tubal ligation Family History Relations & Conditions If Any: FATHER (Colon cancer). MOTHER (Diabetes mellitus). niece (MS). Psychosocial History Where Do You Live? Home Smoking Status: Former Smoker ETOH Use: denies use Illicit Drug Use: denies illicit drug use Functional Ability ADLs Independent: dressing, eating, toileting, bathing. Review of Systems Review of Systems Constitutional: Reports: see HPI. Exam & Diagnostic Data Vital Signs and I&O Vital Signs Date Time Temp Pulse Resp B/P Pulse O2 O2 Flow FiO2 Ox Delivery Rate 05/23 1518 Room Air 05/23 1347 99.0 87 20 122/70 92 Room Air 05/23 0938 58 132/76 05/23 0800 Room Air 05/23 0617 98.7 58 20 132/76 97 Room Air 05/22 2214 97.6 62 20 152/70 96 05/22 2109 97.9 63 16 156/72 97 Room Air 05/22 1848 97.1 64 18 148/72 98 Room Air Intake & Output 05/23 1600 05/23 0800 05/23 0000 05/22 1600 05/22 0800 05/22 0000 Intake Total 480 360 420 0 Output Total 300 Balance 480 60 420 0 Intake, Oral 480 360 420 0 Number 0 Bowel Movements Output, Urine 300 Patient 170 lb 170 lb Weight Physical Exam: On physical examination she has pain over the greater trochanter on the left side and pain with rotational movements of the left hip. She is unable to bear weight fully on the left lower extremity. She is neurologically fully intact. She has normal range of motion of the knee ankle. Assessment/Plan Assessment/Plan Assessment is left closed intertrochanteric hip fracture0 plan is for intramedullary rodding tomorrow Consult Acknowledgment - Thank you for your consult request.
[2016-05-23 22:22] VITALS: BP 120/60
[2016-05-24 06:56] VITALS: BP 118/68
--- NOTE | 2016-05-24 07:26 | PN- Housestaff ---
See Addendum MALISSA SORIANOQASIMMAKENZIE 05/24/16 0721: Subjective Follow-up For: Lt. femur fracture s/p mechanical fall Complaints: pain scale (0-10) (3-4/10) Subjective: Pt is sitting on bed comfortably. She has more pain while she's moving, but 3-4/ 10 pain while resting. She tried not to weight bear on Lt. femur. Review of Systems Constitutional: Denies: chills, fever, weakness. EENTM: Reports: no symptoms. Cardiovascular: Denies: chest pain, edema, orthopena, palpitations. Respiratory: Denies: cough, short of breath, sputum production. Gastrointestinal: Reports: no symptoms. Genitourinary: Reports: no symptoms. Musculoskeletal: Reports: see HPI, joint pain. Skin: Reports: no symptoms. Neurological/Psychological: Reports: no symptoms. Hematologic/Endocrine: Reports: no symptoms. Immunologic/Allergic: Reports: no symptoms. Objective Last 24 Hrs of Vital Signs/I&O Vital Signs Date Time Temp Pulse Resp B/P Pulse O2 O2 Flow FiO2 Ox Delivery Rate 05/24 0953 Room Air 05/24 0914 97.8 58 20 118/68 05/24 0656 97.8 58 20 118/68 96 Room Air 05/23 2222 97.8 60 20 120/60 96 Room Air 05/23 1518 Room Air 05/23 1347 99.0 87 20 122/70 92 Room Air Intake & Output 05/24 1600 05/24 0800 05/24 0000 Intake Total 600 100 Output Total 400 Balance 600 -300 Intake, IV 600 Intake, Oral 100 Number 1 1 Bowel Movements Output, Urine 400 Physical Exam General Appearance: Alert, Oriented X3, Cooperative, No Acute Distress Skin: No Rashes, No Breakdown, No Significant Lesion HEENT: Atraumatic, PERRLA, EOMI, Mucous Membr. moist/pink Neck: Supple, No JVD, No LAD Lymphatic: Cervical nl Cardiovascular: Regular Rate, Normal S1, Normal S2, No Murmurs Lungs: Clear to Auscultation, Normal Air Movement Abdomen: Normal Bowel Sounds, Soft, No Tenderness Neurological: Normal Speech, Normal Tone, Sensation Intact, Lt. leg limited ROM due to fracture Extremities: No Edema, Normal Pulses, Tenderness on Lt. groin/hip Vascular: Normal Pulses, Pulses Symmetrical Current Medications: Current Medications Sig/Chester Start time Last Medication Dose Route Stop Time Status Admin Alprazolam 0.25 MG DAILY NEEDED 05/22 2215 AC 05/23 PO 05/29 221 0938 Amlodipine Besylate 5 MG DAILY 05/23 1000 AC 05/24 PO 0914 Budesonide/ 1 PUF BID 05/22 2212 AC 05/24 Formoterol Fumarate INH 0915 Carisoprodol 175 MG TID 05/23 1000 AC 05/24 PO 0913 Celecoxib 100 MG BID 05/23 1000 AC 05/24 PO 0915 Cholecalciferol 1,000 IU DAILY 05/23 1103 AC 05/24 PO 0914 Dextrose/Sodium 1,000 ML Q13H 05/23 1900 AC 05/24 Chloride IV 1214 Enoxaparin Sodium 40 MG DAILY 05/23 1000 AC 05/23 SC 0938 Levothyroxine Sodium 0.1 MG DAILY AC 05/23 0700 AC 05/24 PO 0639 Morphine Sulfate 2 MG Q6P PRN 05/24 0745 AC IV Patient Medication 1 UNIT ONE NR 05/23 1000 WI Teaching ED 05/23 1600 Polyethylene Glycol 17 GM DAILY 05/23 2200 AC PO Tramadol HCl 50 MG Q6P PRN 05/23 0930 AC 05/23 PO 2220 Last 24 Hrs of Lab/John Results Last 24 Hrs of Labs/Mics: Laboratory Tests 05/24/16 0630: PT 15.5 H, INR 1.48 H, APTT 29, CBC w Diff NO MAN DIFF REQ, RBC 4.01 L, MCV 92.6, MCH 30.8, RDW 13.8, MPV 7.9, Gran % 66.5, Lymphocytes % 20.0 L, Monocytes % 10.6 H, Eosinophils % 2.3, Basophils % 0.6, Absolute Granulocytes 5.2, Absolute Lymphocytes 1.5, Absolute Monocytes 0.8 H, Absolute Eosinophils 0.2, Absolute Basophils 0, PUBS MCHC 33.3 05/23/16 1840: Urine Color YEL, Urine Clarity CLEAR, Urine pH 6.0, Ur Specific Herman 1.025, Urine Protein NEG, Urine Ketones NEG, Urine Nitrite NEG, Urine Bilirubin NEG, Urine Urobilinogen 0.2, Ur Leukocyte Esterase TRACE H, Ur Microscopic SEDIMENT EXAMINED, Urine RBC FEW H, Urine WBC 10-15 H, Ur Epithelial Cells MOD H, Urine Hemoglobin NEG, Urine Glucose NEG Lines/Diet/Fluids Lines: peripheral lines Assessment/Plan Assessment: 70 yo F with h/o COPD, anxiety, HTN, hypothyroidism, LORENZO not using CPAP, RA on tramadol (prev on plaquenil), factor VIII deficiency, who is here s/p mechanical fall on ice 3 days ago with impact and intractable pain to her left hip/ buttock / wrist without any head trauma or LOC. She tried aspirin and soma (that she had from an old prescription) with minimal relief. Today, she was unable to walk or bear weight on her left leg due to excruciating hip pain hence she came to ER. 1. Lt. closed intertrochanteric hip fracture s/p mechanical fall: MRI revealed undisplaced fracture of the proximal Lt. femur. Orthopedic consult is appreciated. NPO for surgical procedure today, c/w d5 1/2 @ 75cc/hr. RCRI class I risk with 0.4% risk of major cardiac event. She could proceed to get a surgery today. fall precautions, pain management with Tramadol, celebrex, Soma TID. Will add IV morphine and DVT ppx post op. PT eval and possible STR placement. 2. HTN: c/w Amlodipine. 3. COPD: c/w TRC/Advair. 4. Anxiety: c/w 0.25mg alprazolam. 5. hypothyroidism: c/w levothyroxine. 6. Vit D deficiency/osteoporosis: Start vit D supplement 1000 IU daily. She will benefit from outpatient work up for osteoporosis/DEXA scan. DVT ppx Lovenox. Full code. Problem List: 1. Femur fracture, left Pain Ratin Pain Location: Lt. hip/femur fracture Pain Goal: Pain 4 or less Pain Plan: celebrex, tramadol, iv morphine postop Tomorrow's Labs & Rationales: CBC, BEP - post op DVT/Prophylaxis: pharmacological Discharge Plan Stable for Discharge? No SAMARIA HICKS MD 05/24/16 1403: Attending Review Statement Attending Statement Attending Statement: examined this patient, discuss w/resident/PA/PROFESSOR OF RADIOLOGY, agreed w/resident/PA/PROFESSOR OF RADIOLOGY, reviewed EMR data (avail), discussed with nursing, amended to note Attending Assessment/Plan: The patient was seen and discussed with house staff. To OR today with Dr. Clement.
--- NOTE | 2016-05-24 07:49 | NUR ---
Physical Therapy: Pt's chart reviewed this morning. Pt with a newly diagnosised with a L intertrochanteric hip fx. Will go to OR today for intermedullary rodding. Will place pt on hold from skilled PT per protocol. Please place a new consult in after surgery with an appropriate WB status. Thank you.
[2016-05-24 09:02] LABS: PT 15.5 SEC (9.4-12.5); PTT 29 SEC (25-37)
[2016-05-24 09:12] LABS: ABSOLUTE BASOPHIL COUNT 0 /CUMM (0.0-0.2); ABSOLUTE EOSINOPHIL COUNT 0.2 /CUMM (0.0-0.7); ABSOLUTE GRANULOCYTE CT 5.2 /CUMM (1.4-6.5); ABSOLUTE LYMPH COUNT 1.5 /CUMM (1.2-3.4); ABSOLUTE MONOCYTE COUNT 0.8 /CUMM (0.10-0.60); BASOPHIL % 0.6 % (0.0-2.0); EOSINOPHIL % 2.3 % (0-5); GRANULOCYTE % 66.5 % (42.2-75.2); HEMATOCRIT 37.1 % (37-47); MEAN CORPUSCULAR HGB 30.8 PG (27.0-31.0); MEAN CORPUSCULAR HGB CONC 33.3 G/DL (33.0-37.0); MEAN CORPUSCULAR VOLUME 92.6 FL (81.0-99.0); MEAN PLATELET VOLUME 7.9 FL (7.4-10.4); PLATELET COUNT 269 /CUMM (130-400); RBC DISTRIBUTION WIDTH 13.8 % (11.5-14.5); RED BLOOD CELL CT 4.01 /CUMM (4.20-5.40); WHITE BLOOD CELL COUNT 7.8 /CUMM (4.8-10.8)
--- NOTE | 2016-05-24 15:28 | Operative Report ---
See Addendum Operative/Inv Procedure Report Surgery Date: 05/25/16 Name of Procedure: Left femur intramedullary rodding Pre-Operative Diagnosis: Left intertrochanteric hip fracture Post-Operative Diagnosis: Left intertrochanteric hip fracture Estimated Blood Loss: 50ml to 100ml Surgeon/Salon Sales Consultant: Dr. Silverio Rosenbaum Anesthesia: general endotracheal tube Drains: None Operative/Procedure Note Note: Patient was brought to the operating room and given a general anesthetic while in her bed. She was then transferred to the fracture table and placed in longitudinal traction. The femur was noted to be lined up anatomically. The left hip and leg were then prepped and draped in usual sterile fashion. Appropriate timeout was done prior to procedure indicating that the left leg was indeed the operative leg was signed and verified by the nursing staff and myself. A small 3 cm centimeter incision was made proximal to the greater trochanter. A guidewire was placed down the greater trochanter. Appropriate proximal reaming was then carried out. After reaming the appropriate size 10 x 1 30 nail was placed into the proximal femur on the left side. Guidewire was then placed up into the femoral head and neck in the central aspect of femoral head and neck on AP and lateral fluoroscopic pictures. Depth measurement measured a 90 mm lag screw. Appropriate appropriate drilling was then carried out for the proximal lag screw lag screw was placed without difficulty and verified on AP and lateral fluoroscopic pictures. The leg screw was locked from proximal. Then went ahead and drilled and placed the appropriate 5 mm cortical screw to lock the fixation in place. Drilling depth gauge measurement and then placement of the screw showed an anatomic alignment. Thorough irrigation was carried out at the end of the procedure. Wounds were closed in a layered fashion and dry sterile dressings were applied. sHe was sent back to the recovery room in stable condition and a dictation by Dr. Rosenbaum thank you
[2016-05-24 16:00] VITALS: BP 128/80
--- NOTE | 2016-05-24 16:00 | RADIOLOGY REPORT ---
EXAMINATION: XR HIP, LEFT CLINICAL INFORMATION: Open reduction internal fixation of left hip. COMPARISON: MRI scan of the left hip dated 05/23/2016. TECHNIQUE: C-arm equipment was dedicated to the operating room for the performance of an open reduction internal fixation. 4 spot films were obtained and are submitted for archiving in PACS. FLUOROSCOPY TIME: 59 seconds. FINDINGS: Serial placement of an intramedullary kim and interlocking compression screw into the left femoral neck is seen. On the images available, alignment appears anatomic. IMPRESSION: Open reduction internal fixation of left hip.
--- NOTE | 2016-05-24 17:41 | PN- Orthopedic ---
Subjective Subjective: Post Op Note s/p left hip IMHS Pain controlled, denies numbness/tingling in LLE. ' She c/o n/v. Otherwise no c/o. Denies CP/SOB. Objective Vital Signs and I&Os Vital Signs Date Time Temp Pulse Resp B/P Pulse O2 O2 Flow FiO2 Ox Delivery Rate 05/24 0953 Room Air 05/24 0914 97.8 58 20 118/68 05/24 0656 97.8 58 20 118/68 96 Room Air 05/23 2222 97.8 60 20 120/60 96 Room Air Intake & Output 05/24 1600 05/24 0800 05/24 0000 05/23 1600 05/23 0800 05/23 0000 Intake Total 495 600 100 480 360 420 Output Total 400 300 Balance 495 600 -300 480 60 420 Intake, IV 375 600 Intake, Oral 120 100 480 360 420 Number 1 1 1 0 Bowel Movements Output, Urine 400 300 Patient 170 lb Weight Physical Exam: Gen: NAD, Comfortable, A&Ox3 Chest: NRD, breathing comfortably on 2L NC. RRR. Ext: Left hip dressing c/d/i. Left thigh soft. No calve TTP/Swelling, N/V intact BLE. Current Medications: Current Medications Sig/Chester Start time Last Medication Dose Route Stop Time Status Admin Acetaminophen 1,000 MG Q6P PRN 05/24 1500 AC N/A 1 UNIT IV Alprazolam 0.25 MG DAILY NEEDED PRN 05/24 1500 AC PO 05/31 1459 Alprazolam 0.25 MG DAILY NEEDED 05/225 DC 05/23 PO 05/29 2214 0938 Amlodipine Besylate 5 MG DAILY 05/25 1000 AC PO Amlodipine Besylate 5 MG DAILY 05/23 1000 DC 05/24 PO 0914 Budesonide/ 1 PUF BID 05/240 AC Formoterol Fumarate INH Budesonide/ 1 PUF BID 05/22 221 DC 05/24 Formoterol Fumarate INH 0915 Carisoprodol 175 MG TID 05/24 1600 AC PO Carisoprodol 175 MG TID 05/23 1000 DC 05/24 PO 0913 Cefazolin Sodium 2 GM IQ8 05/24 1600 AC N/A 1 UNIT IV 05/25 0029 Celecoxib 100 MG BID 05/24 2200 AC PO Celecoxib 100 MG BID 05/23 1000 DC 05/24 PO 0915 Cholecalciferol 1,000 IU DAILY 05/25 1000 AC PO Cholecalciferol 1,000 IU DAILY 05/23 1103 DC 05/24 PO 0914 Dextrose/Sodium 1,000 ML Q13H 05/24 1500 AC 05/24 Chloride IV 1650 Dextrose/Sodium 1,000 ML Q13H 05/23 1900 DC 05/24 Chloride IV 1214 Enoxaparin Sodium 40 MG DAILY 05/25 1000 AC SC Enoxaparin Sodium 40 MG DAILY 05/23 1000 DC 05/23 SC 0938 Levothyroxine Sodium 0.1 MG DAILY AC 05/25 0700 AC PO Levothyroxine Sodium 0.1 MG DAILY AC 05/23 0700 DC 05/24 PO 0639 Morphine Sulfate 2 MG Q6P PRN 05/24 1500 AC IV Morphine Sulfate 2 MG Q6P PRN 05/24 0745 DC IV Ondansetron HCl 4 MG ONCE ONE 05/24 1645 DC 05/24 IV 05/24 1646 1641 Patient Medication 1 ED .STK-MED ONE 05/24 1419 [place] Teaching ED 05/24 1420 Polyethylene Glycol 17 GM DAILY 05/25 1000 AC PO Polyethylene Glycol 17 GM DAILY 05/23 2200 DC PO Tramadol HCl 50 MG Q6P PRN 05/24 1500 AC PO Tramadol HCl 50 MG Q6P PRN 05/23 0930 DC 05/23 PO 2220 Results Last 48 Hours of Labs: Laboratory Tests 05/24 05/23 0630 1840 Coagulation PT (9.4 - 12.5 SEC) 15.5 H INR (0.90 - 1.19) 1.48 H APTT (25 - 37 SEC) 29 Hematology CBC w Diff NO MAN DIFF REQ WBC (4.8 - 10.8 /CUMM) 7.8 RBC (4.20 - 5.40 /CUMM) 4.01 L Hgb (12.0 - 16.0 G/DL) 12.4 Hct (37 - 47 %) 37.1 MCV (81.0 - 99.0 FL) 92.6 MCH (27.0 - 31.0 PG) 30.8 RDW (11.5 - 14.5 %) 13.8 Plt Count (130 - 400 /CUMM) 269 MPV (7.4 - 10.4 FL) 7.9 Gran % (42.2 - 75.2 %) 66.5 Lymphocytes % (20.5 - 51.1 %) 20.0 L Monocytes % (1.7 - 9.3 %) 10.6 H Eosinophils % (0 - 5 %) 2.3 Basophils % (0.0 - 2.0 %) 0.6 Absolute Granulocytes (1.4 - 6.5 /CUMM) 5.2 Absolute Lymphocytes (1.2 - 3.4 /CUMM) 1.5 Absolute Monocytes (0.10 - 0.60 /CUMM) 0.8 H Absolute Eosinophils (0.0 - 0.7 /CUMM) 0.2 Absolute Basophils (0.0 - 0.2 /CUMM) 0 PUBS MCHC (33.0 - 37.0 G/DL) 33.3 Urines Urine Color (YEL,AMB,STR) YEL Urine Clarity (CLEAR) CLEAR Urine pH (5.0 - 8.0) 6.0 Ur Specific Cal[place]oun (1.001 - 1.035) 1.025 Urine Protein (NEG,<30 MG/DL) NEG Urine Ketones (NEG) NEG Urine Nitrite (NEG) NEG Urine Bilirubin (NEG) NEG Urine Urobilinogen (0.1 - 1.0 EU/dl) 0.2 Ur Leukocyte Esterase (NEG) TRACE H Ur Microscopic SEDIMENT EXAMINED Urine RBC (0 - 5 /HPF) FEW H Urine WBC (0 - 2 /HPF) 10-15 H Ur Epithelial Cells (NONE,FEW) MOD H Urine Hemoglobin (NEG) NEG Urine Glucose (N MG/DL) NEG 05/23 05/23 05/22 0720 0720 1829 Chemistry Sodium (137 - 145 mmol/L) 140 Potassium (3.5 - 5.1 mmol/L) 4.4 Chloride (98 - 107 mmol/L) 106 Carbon Dioxide (22 - 30 mmol/L) 23 Anion Gap (5 - 16) 11 BUN (7 - 17 mg/dL) 23 H Creatinine (0.5 - 1.0 mg/dL) 0.9 Estimated GFR (>60 ml/min) > 60 BUN/Creatinine Ratio (7 - 25 %) 25.6 H Glucose (65 - 99 mg/dL) 94 Calcium (8.4 - 10.2 mg/dL) 9.3 Vitamin B12 (239 - 931 pg/mL) 332 25-OH Vitamin D Total (30 - 100 ng/ml) 10.3 L TSH (0.270 - 4.200 uIU/mL) 0.629 Hematology CBC w Diff NO MAN DIFF REQ WBC (4.8 - 10.8 /CUMM) 10.1 RBC (4.20 - 5.40 /CUMM) 4.26 Hgb (12.0 - 16.0 G/DL) 13.1 Hct (37 - 47 %) 39.0 MCV (81.0 - 99.0 FL) 91.5 MCH (27.0 - 31.0 PG) 30.6 RDW (11.5 - 14.5 %) 13.9 Plt Count (130 - 400 /CUMM) 293 MPV (7.4 - 10.4 FL) 7.7 Gran % (42.2 - 75.2 %) 74.7 Lymphocytes % (20.5 - 51.1 %) 16.2 L Monocytes % (1.7 - 9.3 %) 7.4 Eosinophils % (0 - 5 %) 1.2 Basophils % (0.0 - 2.0 %) 0.5 Absolute Granulocytes (1.4 - 6.5 /CUMM) 7.6 H Absolute Lymphocytes (1.2 - 3.4 /CUMM) 1.6 Absolute Monocytes (0.10 - 0.60 /CUMM) 0.7 H Absolute Eosinophils (0.0 - 0.7 /CUMM) 0.1 Absolute Basophils (0.0 - 0.2 /CUMM) 0 PUBS MCHC (33.0 - 37.0 G/DL) 33.5 Assessment/Plan Assessment/Plan 70yo F POD#0 s/p left hip IMHS. Patient stable from Ortho standpoint. - Pain control - PRN IV Antiemetics - CBC, BEP in a.m. - dressing change POD#2 - OK to restart Lovenox tomorrow - OOB with PT in a.m., WBAT - Care per primary team
[2016-05-24 19:08] VITALS: BP 140/60
[2016-05-24 22:30] VITALS: BP 156/60
--- NOTE | 2016-05-25 01:14 | NUR ---
PT BACK FROM PACU AT ABOUT 1600. PT IS DROUZY/AROUSABLE. VSS. 128/80,62,98.1,16,99% ON 3L NC. DRESSING TO L HIP C/D/I. PT C/O NAUSEA- RECIEVED 1X DOSE 4 MG ZOFRAN IV. VS TAKEN AT ABOUT 1830-140/60,PULSE RATE B/C 46-74 BPM, TEMP 95.3 RECTALLY, 18 RESP, 99% ON 3L NC. GABO GORE INFORMED. VERBAL ORDER TO RECHECK VITALS IN ONE HOUR.1929 VS TAKEN- 130/70,68,100% 3L NC, PULSE RATE 48-74 BPM, TEMP 96.3. GABO GORE INFOMED. NO CONCERNS. NO NEW ORDERS. PT IS AGAIN N/V- 1X ORDER 4MG ZOFRAN RECIEVED IV AT ABOUT 2100. AT ABOUT 2230 PT N/V AGAIN- PAINTER AND BODY MECHANIC APPRENTICE CATHY ROD INFORMED. 1X DOSE OF REGLAN 5 MG REVIVED. PT RESTING IN BED. NO S/S/ OF N/V. VSS.
[2016-05-25 03:48] VITALS: BP 120/60
[2016-05-25 06:25] VITALS: BP 110/64
--- NOTE | 2016-05-25 06:55 | PN- Orthopedic ---
Subjective Subjective: The patient was seen this morning postoperatively day #1. She reports that she has only minimal pain until she tries to move and the pain is more significant. She has no complaints at the current time. Objective Vital Signs and I&Os Vital Signs Date Time Temp Pulse Resp B/P Pulse O2 O2 Flow FiO2 Ox Delivery Rate 05/25 0625 97.9 61 20 110/64 100 Room Air 05/25 0348 97.5 63 20 120/60 95 Nasal 3.0L Cannula 05/25 0000 98 Nasal 3.0L Cannula 05/24 2230 97.6 59 20 156/60 98 Nasal 3.0L Cannula 05/24 1908 95.2 56 20 140/60 99 Nasal 4.0L Cannula 05/24 1600 99 Nasal 3.0L Cannula 05/24 1600 98.1 62 16 128/80 99 Nasal 3.0L Cannula 05/24 0953 Room Air 05/24 0914 97.8 58 20 118/68 05/24 0656 97.8 58 20 118/68 96 Room Air Intake & Output 05/25 0800 05/25 0000 05/24 1600 05/24 0800 05/24 0000 05/23 1600 Intake Total 800 495 600 100 480 Output Total 350 100 400 Balance -350 700 495 600 -300 480 Intake, IV 750 375 600 Intake, Oral 50 120 100 480 Number 1 1 1 0 Bowel Movements Output, Urine 350 100 400 Physical Exam: Gen.: Alert and in no obvious distress Skin: Warm and dry Extremities: Bilateral lower extremities are warm without calf tenderness or significant edema. Gross motor and sensory are intact. Left hip dressing is clean, dry, and intact. Assessment/Plan Assessment/Plan Assessment: 70-year-old female status post left hip [facility] postoperative day #1. The patient is progressing as expected and her pain is under adequate control. Recommendations: Out of bed with physical therapy patient is weightbearing as tolerated Continue current pain regiment the patient was encouraged to take some medicine before physical therapy Follow-up morning laboratory studies Lovenox 40 mg subcutaneous daily first dose beginning today GI and DVT prophylaxis Hep-Lock IV fluids For surgical dressing change tomorrow
--- NOTE | 2016-05-25 07:09 | PN- Housestaff ---
MALISSA SORIANO,BEKAH 05/25/16 0709: Subjective Follow-up For: Left femur intramedullary rodding post op #1 Complaints: She had nausea/dry heaving after surgery Subjective: Last night after the surgery, she had nausea/dry heaving. She was given IV zofran for symptom management. Today morning, she feels better, no pain while she's resting. She has soreness/pain while she tries to move. She'll get physical therapy today. Review of Systems Constitutional: Denies: chills, malaise, weakness. EENTM: Reports: no symptoms. Cardiovascular: Denies: chest pain, palpitations, peripheral edema, syncope. Respiratory: Denies: cough, short of breath, sputum production, wheezing. Gastrointestinal: Reports: nausea. Denies: abdominal pain, diarrhea, vomiting. Genitourinary: Reports: no symptoms. Musculoskeletal: Reports: see HPI, joint pain. Skin: Reports: no symptoms. Neurological/Psychological: Reports: no symptoms. Hematologic/Endocrine: Reports: no symptoms. Immunologic/Allergic: Reports: no symptoms. Objective Last 24 Hrs of Vital Signs/I&O Vital Signs Date Time Temp Pulse Resp B/P Pulse O2 O2 Flow FiO2 Ox Delivery Rate 05/25 0625 97.9 61 20 110/64 100 Room Air 05/25 0348 97.5 63 20 120/60 95 Nasal 3.0L Cannula 05/25 0000 98 Nasal 3.0L Cannula 05/24 2230 97.6 59 20 156/60 98 Nasal 3.0L Cannula 05/24 1908 95.2 56 20 140/60 99 Nasal 4.0L Cannula 05/24 1600 99 Nasal 3.0L Cannula 05/24 1600 98.1 62 16 128/80 99 Nasal 3.0L Cannula 05/24 0953 Room Air 05/24 0914 97.8 58 20 118/68 Intake & Output 05/25 1600 05/25 0800 05/25 0000 Intake Total 750 800 Output Total 750 100 Balance 0 700 Intake, IV 650 750 Intake, Oral 100 50 Number 0 Bowel Movements Output, Urine 750 100 Physical Exam General Appearance: Alert, Oriented X3, Cooperative, No Acute Distress Skin: No Rashes, No Breakdown, No Significant Lesion HEENT: Atraumatic, PERRLA, EOMI, Mucous Membr. moist/pink Neck: Supple, No JVD, No LAD Lymphatic: Cervical nl Cardiovascular: Regular Rate, Normal S1, Normal S2, No Murmurs Lungs: Clear to Auscultation, Normal Air Movement Abdomen: Normal Bowel Sounds, Soft, No Tenderness Neurological: Normal Speech, Normal Tone, Sensation Intact, Cranial Nerves 3-12 NL Extremities: Normal Pulses, s/p Lt. femur medullary rodding under dressing Vascular: Normal Pulses, Pulses Symmetrical Current Medications: Current Medications Sig/Chester Start time Last Medication Dose Route Stop Time Status Admin Acetaminophen 1,000 MG Q6P PRN 05/24 1500 AC N/A 1 UNIT IV Alprazolam 0.25 MG DAILY NEEDED PRN 05/24 1500 AC PO 05/31 1459 Alprazolam 0.25 MG DAILY NEEDED 05/22 2214 DC 05/23 PO 05/29 2214 0938 Amlodipine Besylate 5 MG DAILY 05/25 1000 AC PO Amlodipine Besylate 5 MG DAILY 05/23 1000 DC 05/24 PO 0914 Budesonide/ 1 PUF BID 05/24 2200 AC 05/24 Formoterol Fumarate INH 220 Budesonide/ 1 PUF BID 05/22 2212 DC 05/24 Formoterol Fumarate INH 0915 Carisoprodol 175 MG TID 05/24 1600 AC PO Carisoprodol 175 MG TID 05/23 1000 DC 05/24 PO 0913 Cefazolin Sodium 2 GM IQ8 05/24 1600 DC 05/25 N/A 1 UNIT IV 05/25 0029 0330 Celecoxib 100 MG BID 05/24 2200 AC 05/24 PO 2206 Celecoxib 100 MG BID 05/23 1000 DC 05/24 PO 0915 Cholecalciferol 1,000 IU DAILY 05/25 1000 AC PO Cholecalciferol 1,000 IU DAILY 05/23 1103 DC 05/24 PO 0914 Dextrose/Sodium 1,000 ML Q13H 05/24 1500 DC 05/24 Chloride IV 1650 Dextrose/Sodium 1,000 ML Q13H 05/23 1900 DC 05/24 Chloride IV 1214 Enoxaparin Sodium 40 MG DAILY 05/25 1000 AC SC Enoxaparin Sodium 40 MG DAILY 05/25 1000 CAN SC Enoxaparin Sodium 40 MG DAILY 05/23 1000 DC 05/23 SC 0938 Fentanyl Citrate 250 MCG .[facility]-MED ONE 05/24 1231 DC 05/24 1232 Hydromorphone HCl 2 MG .STK-MED ONE 05/24 1444 DC IM 05/24 1445 Hydromorphone HCl 2 MG .STK-MED ONE 05/24 1230 DC IM 05/24 1231 Levothyroxine Sodium 0.1 MG DAILY AC 05/25 0700 AC 05/25 PO 0616 Levothyroxine Sodium 0.1 MG DAILY AC 05/23 0700 DC 05/24 PO 0639 Metoclopramide HCl 5 MG ONCE ONE 05/24 2300 DC 05/24 IV 05/24 2301 2310 Morphine Sulfate 2 MG Q6P PRN 05/24 1500 AC IV Morphine Sulfate 2 MG Q6P PRN 05/24 0745 DC IV Ondansetron HCl 4 MG Q6P PRN 05/25 0600 AC IV Ondansetron HCl 4 MG ONCE ONE 05/24 2045 DC 05/24 IV 05/24 2046 2104 Ondansetron HCl 4 MG ONCE ONE 05/24 1645 DC 05/24 IV 05/24 1646 1641 Pantoprazole Sodium 40 MG BID 05/24 2315 AC 05/25 IV 0042 Patient Medication 1 ED .STK-MED ONE 05/24 1419 DC Teaching ED 05/24 1420 Polyethylene Glycol 17 GM DAILY 05/25 1000 AC PO Polyethylene Glycol 17 GM DAILY 05/23 2200 DC PO Tramadol HCl 50 MG Q6P PRN 05/24 1500 AC PO Tramadol HCl 50 MG Q6P PRN 05/23 0930 DC 05/23 PO 2220 Last 24 Hrs of Lab/John Results Last 24 Hrs of Labs/Mics: Laboratory Tests 05/25/16 0700: Sodium Pending, Potassium Pending, Chloride Pending, Carbon Dioxide Pending, Anion Gap Pending, BUN Pending, Creatinine Pending, BUN/Creatinine Ratio Pending , CBC w Diff Pending, WBC Pending, RBC Pending, Hgb Pending, Hct Pending, MCV Pending, MCH Pending, RDW Pending, Plt Count Pending, MPV Pending, PUBS MCHC Pending Lines/Diet/Fluids Lines: peripheral lines Assessment/Plan Assessment: 70 yo F with h/o COPD, anxiety, HTN, hypothyroidism, LORENZO not using CPAP, RA on tramadol (prev on plaquenil), factor VIII deficiency, who is here s/p mechanical fall on ice 3 days ago with impact and intractable pain to her left hip/ buttock / wrist without any head trauma or LOC. She tried aspirin and soma (that she had from an old prescription) with minimal relief. Today, she was unable to walk or bear weight on her left leg due to excruciating hip pain hence she came to ER. 1. Lt. closed intertrochanteric hip fracture s/p Left femur intramedullary rodding: post op #1. Orthopedic surgery was done by Dr. Rosenbaum. She didn't have fever. No pain while resting, but mild pain with mobilization. fall precautions, pain management with Tramadol, celebrex, Soma TID, IV morphine. DVT ppx with SC lovenox 40mg daily. Pending PT eval regarding placement -> STR. 2. HTN: c/w Amlodipine. 3. COPD: c/w TRC/Advair. 4. Anxiety: c/w 0.25mg alprazolam. 5. hypothyroidism: c/w levothyroxine. 6. Vit D deficiency/osteoporosis: Start vit D supplement 1000 IU daily. She will benefit from outpatient work up for osteoporosis/DEXA scan. 7. Rheumatoid Arthritis: patient is doing well with celebrex. Continue after discharge. DVT ppx Lovenox. Full code. Problem List: 1. Femur fracture, left 2. Intractable pain Pain Ratin Pain Location: Lt. hip/femur Pain Goal: Pain 4 or less Pain Plan: po celebrex, soma, tramadol, IV morphine Tomorrow's Labs & Rationales: CBC - leukocytosis DVT/Prophylaxis: pharmacological Consulting Request: Consulting Specialty: Orthopedics Consulting Physician: Dr. Rosenbaum Reason for Consult: Lt. femur fracture Discharge Plan Discharge Disposition: STR/NH Stable for Discharge? No Anticipated Discharge (Day): tomorrow SAMARIA HICKS MD 05/25/16 1328: Attending MD Review Statement Attending Statement Attending MD Statement: examined this patient, discuss w/resident/PA/MOTION PICTURE COMMENTATOR, agreed w/resident/PA/MOTION PICTURE COMMENTATOR, reviewed EMR data (avail), discussed with nursing, discussed with case mgmt, amended to note Attending Assessment/Plan: The patient was seen and discussed with house staff. Agree with the plan of care as outlined.
[2016-05-25 08:19] LABS: ABSOLUTE BASOPHIL COUNT 0 /CUMM (0.0-0.2); ABSOLUTE EOSINOPHIL COUNT 0 /CUMM (0.0-0.7); ABSOLUTE GRANULOCYTE CT 9.1 /CUMM (1.4-6.5); ABSOLUTE LYMPH COUNT 0.9 /CUMM (1.2-3.4); BASOPHIL % 0.1 % (0.0-2.0); EOSINOPHIL % 0.1 % (0-5); GRANULOCYTE % 82.3 % (42.2-75.2); HEMATOCRIT 33.7 % (37-47); MEAN CORPUSCULAR HGB 31.3 PG (27.0-31.0); MEAN CORPUSCULAR HGB CONC 34.3 G/DL (33.0-37.0); MEAN CORPUSCULAR VOLUME 91.3 FL (81.0-99.0); MEAN PLATELET VOLUME 7.8 FL (7.4-10.4); PLATELET COUNT 274 /CUMM (130-400); RBC DISTRIBUTION WIDTH 13.6 % (11.5-14.5); RED BLOOD CELL CT 3.69 /CUMM (4.20-5.40); WHITE BLOOD CELL COUNT 11.1 /CUMM (4.8-10.8)
--- NOTE | 2016-05-25 09:52 | PN- Orthopedic ---
Subjective Subjective: Patient is postoperative day 1 status post IM rodding of the left femur. She is doing well she states states she is only taking tramadol for pain. She started physical therapy and has done some range of motion exercises. Objective Vital Signs and I&Os Vital Signs Date Time Temp Pulse Resp B/P Pulse O2 O2 Flow FiO2 Ox Delivery Rate 05/25 0921 Room Air 05/25 08 Room Air 05/25 0625 97.9 61 20 110/64 100 Room Air 05/25 0348 97.5 63 20 120/60 95 Nasal 3.0L Cannula 05/25 0000 98 Nasal 3.0L Cannula 05/24 2230 97.6 59 20 156/60 98 Nasal 3.0L Cannula 05/24 1908 95.2 56 20 140/60 99 Nasal 4.0L Cannula 05/24 1600 99 Nasal 3.0L Cannula 05/24 1600 98.1 62 16 128/80 99 Nasal 3.0L Cannula 05/24 0953 Room Air Intake & Output 05/25 1600 05/25 0800 05/25 0000 05/24 1600 05/24 0800 05/24 0000 Intake Total 750 800 495 600 100 Output Total 750 100 400 Balance 0 700 495 600 -300 Intake, IV 650 750 375 600 Intake, Oral 100 50 120 100 Number 0 1 1 1 Bowel Movements Output, Urine 750 100 400 Physical Exam: On physical exam her dressing is clean and intact she's neurologically fully intact. She has some discomfort moving the left hip but is going through a fairly normal range of motion. Physical therapy; back later this afternoon to have her put full weightbearing on that hip. Assessment/Plan Assessment/Plan She is doing well status post left intramedullary rodding of the left femur postop day 1. Plan is at this point in time for her to continue with physical therapy she'll probably be discharged tomorrow to home she'll need social work administrator to arrange for physical therapy at home. She will use a walker initially and then transition to a cane when comfortable. Core Measures/Miscellaneous Venous Thromboembolism VTE Risk Factors: Acute medical illness (hip surgery) VTE Contraindications: Abn Clotting Times (none) VTE Prophylaxis Ordered Inpt: Pharm- Lovenox VTE Diagnosis: No VTE Type: NONE VTE Confirmed by (Test): NONE Beta Edwina Is Beta Edwina a Home Med? Yes Antibiotics Is Patient on Antibiotics? Yes (kefzol)
[2016-05-25 10:39] VITALS: BP 126/80
[2016-05-25 14:15] VITALS: BP 110/60
--- NOTE | 2016-05-25 17:34 | Discharge Summary ---
See Addendum Visit Information Visit Dates Admission Date: 05/22/16 Discharge Date: 05/26/16 Hospital Course Course Attending Physician: SAMARIA HICKS MD Primary Care Physician: JOSE ANGEL SORIANO,CLOTILDE Armando Consulting Request: Consulting Specialty: Orthopedics Consulting Physician: Dr. Rosenbaum Reason for Consult: Lt. femur fracture Hospital Course: 70 yo woman with pmh of COPD, anxiety, HTN, hypothyroidism, LORENZO not using CPAP, RA on tramadol (prev on plaquenil), factor VIII deficiency presented to [place] ED with intractable Lt. hip & wrist pain s/p mechanical fall on ice 3 days ago without any head trauma or LOC. She tried aspirin and soma with minimal relief. On the day of admission, she was unable to walk or bear weight on her left leg due to excruciating hip pain. She denied any chest pain or discomfort, breathing difficultynausea, vomiting, abdominal pain, diarrhea, constipation, any change in urinary or bowel habits. She lives with her boyfriend. Former smoker (Quit smoking 15 years ago). She denied use of alcohol or illicit drugs. At baseline, she is independent on activities of daily living. Initial VS: 97.9F DC 61 RR 20 BP 155/79 On exam: General Appearance Alert, Oriented X3, Cooperative, No Acute Distress, Skin No Rashes, no bruises, HEENT Mucous Membr. moist/pink Neck Supple, Cardiovascular Regular Rate, No Murmurs, Lungs Clear to Auscultation, Abdomen Normal Bowel Sounds, Soft, No Tenderness, Neurological Normal Speech, Strength at 5/5 X4 Ext, Sensation Intact, Cranial Nerves 3-12 NL, Extremities no midline or paraspinal tenderness, tenderness noted to left lateral hip without obvious ecchymosis or swelling. SLR negative. Patient was able to stand on both her feet, take one step forward with her left foot, but as soon as she offloaded her right leg she was in pain and unable to bear weight on her left hip. No knee pain. Peripheral pulses intact. Left wrist dorsum bony abnormality without obvious tissue swelling or ecchymosis. Labs WBC 10.1 Hb/hct 13.1/39, INR 1.48, Na 140, K 4.4, BUN/Cr 23/0.9, Vit D 10.3 Lt. hip / femur MRI 1. Abnormal study, with findings compatible with an undisplaced fracture of the proximal left femur. The fracture appears near complete, but not definitely complete, extending from the greater trochanteric region through the intertrochanteric region to the subtrochanteric region. Associated abnormal marrow edema. 2. Reactive edema versus tendinosis of the left gluteus minimus and medius tendons. 3. Mild left common hamstring tendinosis. 4. Left adnexal cyst measuring 3 x 2.4 cm. Recommend correlation with ultrasound. Patient was admitted for following problem lists; 1. Lt. closed intertrochanteric hip fracture s/p mechanical fall: MRI revealed undisplaced fracture of the proximal Lt. femur. Orthopedic consult is appreciated. RCRI class I risk with 0.4% risk of major cardiac event. She had Left femur intramedullary rodding on 05/[address] Rosenbaum. She was on fall precautions. She was given pain management with po Tramadol, celebrex, Soma TID with IV morphine post op. DVT ppx was started with SC lovenox 40mg daily on . PT evaluation recommended STR placement. She needs to follow up with Dr. Rosenbaum in 2 weeks and continue DVT ppx at least 4 weeks until 06/21. 2. HTN: Her BP remained stable with home dose of amlodipine. 3. COPD: Stable, she was tiven TRC/Advair as needed. 4. Anxiety: We continued 0.25mg alprazolam. 5. hypothyroidism: We continued home dose levothyroxine 0.1mg daily 6. Vit D deficiency/osteoporosis: As she has Vit D deficienc with level of 10.2, Vit D supplement 1000 IU daily was started. Please follow up with a primary doctor for further work up of osteoporosis/DEXA scan. 7. RA: Arthritic pain was well controlled with po celebrex 100mg bid. DVT ppx Lovenox. Full code. Allergies: Coded Allergies: diazepam (Mild, ITCHING 05/22/16) Sulfa (Sulfonamide Antibiotics) (ITCHING 05/22/16) oxycodone (GI SXS 05/22/16) Uncoded Allergies: DAIRY FOODS (GI DISTRESS 05/22/16) Significant Procedures: Surgery Date: 05/24/16 Name of Procedure: Left femur intramedullary rodding Pre-Operative Diagnosis: Left intertrochanteric hip fracture Post-Operative Diagnosis: Left intertrochanteric hip fracture Estimated Blood Loss: 50ml to 100ml Surgeon/Reverberatory Skimmer: Dr. Silverio Rosenbaum Disposition Summary Disposition Principal Diagnosis: Lt. closed intertrochanteric hip fracture s/p Left femur intramedullary rodding Additional Diagnosis: HTN HLD COPD Anxiety Hypothyroidism Rheumatoid arthritis Vit D deficiency Discharge Disposition: SNF Discharge Instructions General Discharge Information Code Status: Full Code Patient's Diet: Heart healthy diet Patient's Activity: Weight bearing as tolerated, out of bed to chair Continue physical therapy Follow-Up Instructions/Appts: 1. Please follow up with a primary doctor within 1 week after discharge 2. Please continue SC lovenox at least 4 weeks after surgery and follow up with orthopedic doctor. 3. Please follow up with Dr. Rosenbaum in the office in 2 weeks. 4. Please continue physical therapy, weight bearing as tolerated 5. Please follow up with a primary doctor for further work up of osteoporosis/ DEXA scan. Medications at Discharge Discharge Medications: Continue taking these medications: Levothyroxine Sodium (Levoxyl) 100 MCG TABLET 1 Tablet ORAL DAILY BEFORE BREAKFAST Comments: taken 05/26 at 0700am Amlodipine Besylate (Norvasc) 5 MG TABLET 1 Tablet ORAL DAILY Comments: last taken 05/26 at 10am Fluticasone/Salmeterol (Advair 500-50 Diskus) 500 MCG-50 MCG/DOSE BLST.W.DEV 1 Puff Inhale through mouth TWICE DAILY Comments: not given in hospital Tramadol HCl (Tramadol HCl) 50 MG TABLET 1 Tablet ORAL TWICE DAILY Alprazolam (Xanax) 0.25 MG TABLET 1 Tablet ORAL DAILY NEEDED Comments: last taken 05/25/16 at 2000 Carisoprodol (SOMA) 250 MG TABLET 0.5 Tablet ORAL DAILY as needed for MUSCLE RELAXANT Comments: last taken 05/25 at 2200 Start taking the following new medications: Enoxaparin Sodium (Lovenox) 40 MG/0.4 ML SYRINGE 40 Milligram Inject into fatty tissue DAILY Days = 26 No Refills Instructions: total 4 weeks until 06/21 Celecoxib (Celebrex) 100 MG CAPSULE 100 Milligram ORAL TWICE DAILY Days = 30 No Refills Tramadol HCl (Tramadol HCl) 50 MG TABLET 50 Milligram ORAL EVERY SIX HOURS NEEDED as needed for PAIN SCALE 7-10 ( SEVERE) Qty = 40 No Refills Polyethylene Glycol 3350 (Miralax) 17 GRAM/DOSE POWDER 17 Gram ORAL DAILY as needed for Constipation Days = 30 No Refills Cholecalciferol (Vitamin D3) 1,000 UNIT TABLET 1,000 International Unit ORAL DAILY Days = 30 No Refills Omeprazole (Omeprazole) 20 MG CAPSULE. 40 Milligram ORAL TWICE DAILY Days = 30 No Refills Copies To: KURT SORIANO,SILVERIO Escobar; SAMARIA HICKS MD; JOSE ANGEL SORIANO,CLOTILDE Armando Attending MD Review Statement Documenting Attending: SAMARIA HICKS MD Other Findings: The patient was seen and discussed with house staff. Agree with transfer to rehab today. Once out of rehab the patient was advised to see her PCP and have DEXA/bone density evaluation for osteoporosis.
[2016-05-25] MEDS ORDERED: LOVENOX40 MG/0.1 SC (17:35)
[2016-05-25] MEDS ORDERED: CELEBREX100 M1 PO (17:36)
[2016-05-25] MEDS ORDERED: TRAMADOL HCL50 M1 PO (17:37)
[2016-05-25 17:38] VITALS: BP 130/62
[2016-05-25] MEDS ORDERED: VITAMIN D31000 UNI2 PO (17:40)
[2016-05-25] MEDS ORDERED: MIRALAX119 GM PO (17:40)
[2016-05-25] MEDS ORDERED: OMEPRAZOLE20 M2 PO (17:44)
[2016-05-25 21:54] VITALS: BP 132/62
--- NOTE | 2016-05-26 07:09 | PN- Housestaff ---
MALISSA SORIANO,BEKAH 05/26/16 0709: Subjective Follow-up For: Lt. hip fracture s/p Left femur intramedullary rodding Complaints: cough Subjective: She is doing okay sitting in a chair out of bed post op #2. Her surgical dressing was changed today morning by PA. She started physical therapy yesterday. She c/o dry cough without fever. Review of Systems Constitutional: Denies: chills, fever, weakness. EENTM: Reports: no symptoms. Cardiovascular: Denies: chest pain, orthopena, palpitations, peripheral edema. Respiratory: Reports: cough. Denies: orthopnea, short of breath, sputum production, wheezing. Gastrointestinal: Denies: abdominal pain, diarrhea, nausea, vomiting. Genitourinary: Reports: no symptoms. Musculoskeletal: Reports: see HPI. Skin: Reports: see HPI (Lt. hip under dressing). Neurological/Psychological: Reports: no symptoms. Hematologic/Endocrine: Reports: no symptoms. Immunologic/Allergic: Reports: no symptoms. Objective Last 24 Hrs of Vital Signs/I&O Vital Signs Date Time Temp Pulse Resp B/P Pulse O2 O2 Flow FiO2 Ox Delivery Rate 05/26 0727 99.4 67 20 120/60 93 Room Air 05/25 2154 99.3 74 20 132/62 93 Room Air 05/25 1738 98.8 66 20 130/62 94 Room Air 05/25 1415 98.2 68 22 110/60 93 Room Air 05/25 1132 Room Air 05/25 1039 97.8 66 20 126/80 92 Room Air 05/25 0952 132/80 05/25 0921 Room Air 05/25 0800 Room Air Intake & Output 05/26 0800 05/26 0000 05/25 1600 Intake Total 500 950 Output Total 600 400 Balance -100 550 Intake, Oral 500 950 Output, Urine 600 400 Physical Exam General Appearance: Alert, Oriented X3, Cooperative Skin: No Rashes, No Breakdown, No Significant Lesion, Lt. hip s/p dressing HEENT: Atraumatic, PERRLA, EOMI, Mucous Membr. moist/pink Neck: Supple, No JVD, No thryomegaly, No LAD Lymphatic: Cervical nl Cardiovascular: Regular Rate, Normal S1, Normal S2, No Murmurs Lungs: Clear to Auscultation, Normal Air Movement Abdomen: Normal Bowel Sounds, Soft, No Tenderness Neurological: Normal Speech, Strength at 5/5 X4 Ext, Normal Tone, Sensation Intact, Cranial Nerves 3-12 NL Extremities: No Edema, Normal Pulses Vascular: Normal Pulses, Pulses Symmetrical Current Medications: Current Medications Sig/Chester Start time Last Medication Dose Route Stop Time Status Admin Acetaminophen 1,000 MG Q6P PRN 05/24 1500 AC N/A 1 UNIT IV Alprazolam 0.25 MG DAILY NEEDED PRN 05/24 1500 AC 05/25 PO 05/31 1459 1004 Amlodipine Besylate 5 MG DAILY 05/25 1000 AC 05/25 PO 0952 Budesonide/ 1 PUF BID 05/24 2200 AC 05/25 Formoterol Fumarate INH 2134 Carisoprodol 175 MG TID 05/24 1600 AC 05/25 PO 2130 Celecoxib 100 MG BID 05/24 2200 AC 05/25 PO 2130 Cholecalciferol 1,000 IU DAILY 05/25 1000 AC 05/25 PO 1250 Enoxaparin Sodium 40 MG DAILY 05/25 1000 AC 05/25 SC 0952 Ibuprofen 400 MG ONCE ONE 05/26 0445 DC 05/26 PO 05/26 0446 0445 Levothyroxine Sodium 0.1 MG DAILY AC 05/25 0700 AC 05/26 PO 0637 Morphine Sulfate 2 MG Q6P PRN 05/24 1500 AC 05/25 IV 2133 Omeprazole 40 MG BID 05/25 2200 AC 05/25 PO 2130 Ondansetron HCl 4 MG Q6P PRN 05/25 0600 AC IV Pantoprazole Sodium 40 MG BID 05/24 2315 DC 05/25 IV 0953 Patient Medication 1 ED .STK-MED ONE 05/25 1402 MD Teaching ED 05/25 1403 Polyethylene Glycol 17 GM DAILY 05/25 1000 AC 05/25 PO 0952 Tramadol HCl 50 MG Q6P PRN 05/24 1500 AC 05/25 PO 1853 Last 24 Hrs of Lab/John Results Last 24 Hrs of Labs/Mics: Laboratory Tests 05/26/16 0620: CBC w Diff Pending, WBC Pending, RBC Pending, Hgb Pending, Hct Pending, MCV Pending, MCH Pending, RDW Pending, Plt Count Pending, MPV Pending, PUBS MCHC Pending Lines/Diet/Fluids Lines: peripheral lines Assessment/Plan Assessment: 70 yo F with h/o COPD, anxiety, HTN, hypothyroidism, LORENZO not using CPAP, RA on tramadol (prev on plaquenil), factor VIII deficiency, who is here s/p mechanical fall on ice 3 days ago with impact and intractable pain to her left hip/ buttock / wrist without any head trauma or LOC. She tried aspirin and soma (that she had from an old prescription) with minimal relief. Today, she was unable to walk or bear weight on her left leg due to excruciating hip pain hence she came to ER. 1. Lt. closed intertrochanteric hip fracture s/p Left femur intramedullary rodding: post op #2. Orthopedic surgery was done by Dr. Rosenbaum. After physical therapy, she is able to move her legs with mild-mod pain. Continue fall precautions and physical therapy. Continue DVT ppx with SC lovenox 40mg daily. For cough, use incentive spirometry. Please follow up with Dr. Rosenbaum in 2 weeks. 2. HTN: c/w Amlodipine. 3. COPD: c/w TRC/Advair. 4. Anxiety: c/w 0.25mg alprazolam. 5. hypothyroidism: c/w levothyroxine. 6. Vit D deficiency/osteoporosis: Start vit D supplement 1000 IU daily. She will benefit from outpatient work up for osteoporosis/DEXA scan. 7. Rheumatoid Arthritis: patient is doing well with celebrex. Continue medication after discharge. DVT ppx Lovenox. Full code. Problem List: 1. Femur fracture, left Pain Ratin Pain Location: Lt. hip s/p surgery Pain Goal: Pain 4 or less Pain Plan: tyrenol, tramadol, morphine Tomorrow's Labs & Rationales: DC today DVT/Prophylaxis: pharmacological Consulting Request: Consulting Specialty: Orthopedics Consulting Physician: Dr. Rosenbaum Reason for Consult: Lt. femur fracture Discharge Plan Discharge Disposition: [place] STR Stable for Discharge? Yes Anticipated Discharge (Day): today If Discharged Today/In 24 Hrs: enter [facility] discharge ord, W-10/discharge paper done, DC summary done, CMR done SAMARIA HICKS MD 05/26/16 1319: Attending Review Statement Attending Statement Attending Statement: examined this patient, discuss w/resident/PA/PROCESS CHEMIST, agreed w/resident/PA/PROCESS CHEMIST, reviewed EMR data (avail), discussed with nursing, discussed with case mgmt, amended to note Attending Assessment/Plan: The patient was seen and discussed with house staff. Agree with plan of care. OK to go to rehab today. Osteoporosis evaluation as OP.
[2016-05-26 07:27] VITALS: BP 120/60
[2016-05-26 07:51] LABS: ABSOLUTE BASOPHIL COUNT 0 /CUMM (0.0-0.2); ABSOLUTE EOSINOPHIL COUNT 0.1 /CUMM (0.0-0.7); ABSOLUTE GRANULOCYTE CT 7.2 /CUMM (1.4-6.5); ABSOLUTE LYMPH COUNT 1.2 /CUMM (1.2-3.4); ABSOLUTE MONOCYTE COUNT 1.1 /CUMM (0.10-0.60); BASOPHIL % 0.3 % (0.0-2.0); EOSINOPHIL % 0.8 % (0-5); GRANULOCYTE % 75.3 % (42.2-75.2); HEMATOCRIT 32.3 % (37-47); MEAN CORPUSCULAR HGB 31.1 PG (27.0-31.0); MEAN CORPUSCULAR VOLUME 91.4 FL (81.0-99.0); MEAN PLATELET VOLUME 7.8 FL (7.4-10.4); PLATELET COUNT 253 /CUMM (130-400); RBC DISTRIBUTION WIDTH 13.8 % (11.5-14.5); RED BLOOD CELL CT 3.54 /CUMM (4.20-5.40); WHITE BLOOD CELL COUNT 9.5 /CUMM (4.8-10.8)
[2016-05-26 10:17] VITALS: BP 120/60
--- NOTE | 2016-05-26 10:26 | Patient Discharge Instructions ---
Discharge Instructions General Discharge Information You were seen/treated for: Lt. closed intertrochanteric hip fracture s/p mechanical fall You had these procedures: Left femur intramedullary rodding on 05/24 Watch for these problems: fever, worsening pain on surgical site Other wound care: Please change daily dry dressing on surgical site. Special Instructions: 1. Please follow up with a primary doctor within 1 week after discharge 2. Please continue SC lovenox at least 4 weeks after surgery and follow up with orthopedic doctor. 3. Please follow up with Dr. Rosenbaum in the office in 2 weeks. 4. Please continue physical therapy, weight bearing as tolerated 5. Please follow up with a primary doctor for further work up of osteoporosis/ DEXA scan. Diet Continue normal diet: Yes Recommended Diet: Heart Healthy, Regular Activity Full Activity/No Limits: Yes Activity Self Limited: No Activity Limited to: Weight bear as tolerated Additional ACTIVITY Info: Increase as tolerated Acute Coronary Syndrome Inclusion Criteria At DC or during hospital stay patient has or had the following: ACS DIAGNOSIS No Discharge Core Measures Meds if any: Prescribed or Continued at Discharge Meds if any: NOT Prescribed or Continued at Discharge Congestive Heart Failure Inclusion Criteria At DC or during hospital stay patient has or had the following: CHF DIAGNOSIS No Discharge Core Measures Meds if any: Prescribed or Continued at Discharge Meds if any: NOT Prescribed or Continued at Discharge Cerebrovascular accident Inclusion Criteria At DC or during hospital stay patient has or had the following: CVA/TIA Diagnosis No Discharge Core Measures Meds if any: Prescribed or Continued at Discharge Meds if any: NOT Prescribed or Continued at Discharge Venous thromboembolism Inclusion Criteria VTE Diagnosis No VTE Type NONE VTE Confirmed by (Test) NONE Discharge Core Measures - Per Current guidelines, there needs to be overlap - treatment for the first 5 days of Warfarin therapy. - If discharged on Warfarin prior to 5 days of - overlap therapy, the patient will need to be - assessed for post discharge needs including - *Post discharge parental anticoagulation - *Warfarin and/or parental anticoagulation education - *Follow up date to check INR post discharge At least 5 days overlap therapy as Inpatient No Meds if any: Prescribed or Continued at Discharge Note: Overlap Therapy is Warfarin and Anticoagulant Meds if any: NOT Prescribed or Continued at Discharge
--- NOTE | 2016-05-26 10:52 | PN- Orthopedic ---
Subjective Subjective: No acute overnight events reported. Pain controlled well. Tolerating weight bearing with rolling walker. Tolerating diet. Voiding spontaneously. No complaints of chest pain, shortness of breath and difficulty breathing. No nausea and vomitting. Objective Vital Signs and I&Os Vital Signs Date Time Temp Pulse Resp B/P Pulse O2 O2 Flow FiO2 Ox Delivery Rate 05/26 1017 99.4 67 20 120/60 05/26 0834 120/60 05/26 0727 99.4 67 20 120/60 93 Room Air 05/26 0000 93 Room Air 05/25 2154 99.3 74 20 132/62 93 Room Air 05/25 1738 98.8 66 20 130/62 94 Room Air 05/25 1415 98.2 68 22 110/60 93 Room Air 05/25 1132 Room Air 05/25 1039 97.8 66 20 126/80 92 Room Air Intake & Output 05/26 1600 05/26 0800 05/26 0000 05/25 1600 05/25 0800 05/25 0000 Intake Total 100 500 950 750 800 Output Total 700 600 400 750 100 Balance -600 -100 550 0 700 Intake, IV 0 650 750 Intake, Oral 100 500 950 100 50 Number 0 0 Bowel Movements Output, Urine 700 600 400 750 100 Physical Exam: General: Alert and oriented, no acute distress Cardiac: RRR, s1s2 Pulmonary: CTA B Abdomen: Non-tender, non-distended Extremities: Moves all extremities, distal sensation intact. Motor 5/5 in plantar and dorsi flexion. DP pulses palpable, skin warm and well perfused, dp pulses palpable bilaterally, bilateral calves soft and non-tender Surgical site: Left thigh, dressing changed, no drainage, no redness, warmth or erythema. Thigh compartment soft. Clean dry dressing reapplied. Assessment/Plan Assessment/Plan This is a 70 year old female, POD 2, s/p ORIF L non-displaced intertrochanteric fracture. Doing well -Plan for discharge to short term rehab facility pending medical team clearance -Continue current pain regimen -Continue diet as tolerated -Daily dry dressing changes -Continue current pain regimen -Incentive spirometry encouraged -Medical team primary coverage, surgery team will remain available for consultation -Will d/w dr. Rosenbaum
== END 2016-05-26 12:58 | DRG 480 ==
LOC: ENRESERVDT → ENRESERVTM → ERH 14:44 → 2NA 20:21 → ERHI 20:21 → ENPENDDIS 20:21 → 2NA 21:20
PROVIDERS: Internal Medicine; Physician Assistant Medical; ADMIT Student in an Organized Health Care Education/Training Program
PROC: 0QH906Z Insertion of Intramedullary Internal Fixation Device into Left Femoral Shaft, Open Approach (ICD-10-PCS; principal; 2016-05-24)
DX: S72.302A Unspecified fracture of shaft of left femur, initial encounter for closed fracture (principal); D66 Hereditary factor VIII deficiency; J44.9 Chronic obstructive pulmonary disease, unspecified; M06.9 Rheumatoid arthritis, unspecified; G47.33 Obstructive sleep apnea (adult) (pediatric); E03.9 Hypothyroidism, unspecified; I10 Essential (primary) hypertension; W00.0XXA Fall on same level due to ice and snow, initial encounter; Y92.9 Unspecified place or not applicable; F41.9 Anxiety disorder, unspecified; Z87.891 Personal history of nicotine dependence; E55.9 Vitamin D deficiency, unspecified
CPT/HCPCS: 2NASP; 75615; 75651; 73110-LT; 73502-LT; 73610-LT; 81001; 82436; 93005; 93010; 96372; 97110-GO; 97116-GO; 97161-GP; 97530-GO; J0131; J0690; J1650; J1885; J2405; J2765; J3490; J7042